=== PATIENT | male | born 1930 | race Caucasian/White ===

== ENCOUNTER 2017-08-20 08:01 | Inpatient (IN) | payer MEDICARE, BC ==
[2017-08-20] MEDS ORDERED: Gabapentin 300 MG Cap PO ONE (08:15)
[2017-08-20] MEDS ORDERED: Scopolamine 1.5 MG Transdermal Patch TRDERM SCH (08:15)
[2017-08-20] MEDS ORDERED: Neostigmine Methylsulfate 1 MG/ML 5 ML Syringe ONE (08:21)
[2017-08-20] MEDS ORDERED: Dexamethasone 4 MG/ML SDV ONE (08:21)
[2017-08-20] MEDS ORDERED: Rocuronium 50 MG/5 ML Vial ONE (08:21)
[2017-08-20] MEDS ORDERED: Glycopyrrolate 0.2 MG/ML 5 ML MDV ONE (08:21)
[2017-08-20] MEDS ORDERED: Succinylcholine 200 MG/10 ML MDV ONE (08:21)
[2017-08-20] MEDS ORDERED: Ondansetron 4 MG/2 ML SDV ONE (08:21)
[2017-08-20] MEDS ORDERED: Propofol 200 MG/20 ML SDV ONE ×3 (08:21→11:54)
[2017-08-20] MEDS ORDERED: fentaNYL 100 MCG/2 ML SDV ONE (08:29)
[2017-08-20] MEDS ORDERED: Midazolam 1 MG/ML 2 ML SDV ONE (08:29)
[2017-08-20] MEDS ORDERED: Povidone-Iodine 10% Soln 118.25 ML Bottle ONE (08:50)
[2017-08-20] MEDS ORDERED: ceFAZolin 2 GM in Premix Bag 1 BAG IV ONE (09:30)
[2017-08-20] MEDS: Lactated Ringers 1,000 ML IV SCH ×2 (09:33→16:58)
[2017-08-20] MEDS ORDERED: Ropivacaine 49.25 ML, Ketorolac 30 MG, EPINEPHrine 0.5 MG, cloNIDine 80 MCG, Sodium Chl... INJECT ONE ×5 (09:45)
[2017-08-20] MEDS ORDERED: Tranexamic Acid 1,000 MG in Sodium Chloride 0.9% 100 ML IV SCH (09:45)
[2017-08-20] MEDS ORDERED: Tranexamic Acid 1,000 MG in Sodium Chloride 0.9% 50 ML IV SCH (09:45)
[2017-08-20] MEDS ORDERED: Gentamicin 40 MG/ML 2 ML Vial ONE (11:08)
[2017-08-20] MEDS ORDERED: Acetaminophen 1,000 MG in Premix Bag 1 BAG IV ONE (12:28)
[2017-08-20] MEDS ORDERED: Aluminum Hydroxide/Magnesium Hydroxide/Simethicone Susp 30 ML Cup PO PRN (12:28)
[2017-08-20] MEDS ORDERED: diphenhydrAMINE 50 MG/ML SDV IVPUSH PRN (12:28)
[2017-08-20] MEDS ORDERED: traMADol 50 MG Tab PO PRN (12:28)
[2017-08-20] MEDS ORDERED: Ketorolac 30 MG/ML SDV IVPUSH PRN (12:28)
[2017-08-20] MEDS ORDERED: Morphine 2 MG/ML Syringe IVPUSH PRN (12:28)
[2017-08-20] MEDS ORDERED: oxyCODONE 5 MG Tab PO PRN (12:28)
[2017-08-20] MEDS ORDERED: Ondansetron 4 MG/2 ML SDV IVPUSH PRN (12:28)
[2017-08-20] MEDS ORDERED: Naloxone 0.4 MG/ML SDV IVPUSH PRN (12:28)
[2017-08-20] MEDS ORDERED: Zolpidem 5 MG Tab PO PRN (12:28)
[2017-08-20] MEDS ORDERED: Tranexamic Acid 1,000 MG in Sodium Chloride 0.9% 50 ML IV ONE (12:30)
[2017-08-20] MEDS ORDERED: ceFAZolin 2 GM in Sodium Chloride 0.9% 50 ML IV SCH (12:30)
[2017-08-20] MEDS ORDERED: Diazepam 5 MG Tab PO PRN (13:24)
--- NOTE | 2017-08-20 13:55 | CR ---
Knee 1V or 2V Lt HISTORY: Prior knee replacement. COMPARISON: 08/01/2017. FINDINGS: Medial hemiarthroplasty change. There is no fracture there is good alignment. Small amount of fluid and gas in the suprapatellar bursa.
--- NOTE | 2017-08-20 14:54 | PCM.PN ---
- General Info Date of Service: 08/20/17 Functional Status: Reports: Pain Controlled, Tolerating Diet - Review of Systems Systems Review Comment:: No acute events since surgery. Vital signs have been stable. He has no knee pain at this time. He is able to wiggle his toes without difficulty. No paresthesias reported. No complaints of chest pain or shortness of breath. - Patient Data Vitals - Most Recent: Last Vital Signs Temp 35.7 C 08/20/17 14:30 Pulse 70 08/20/17 14:30 Resp 18 08/20/17 14:30 BP 123/74 08/20/17 14:30 Pulse Ox 96 08/20/17 14:30 Weight - Most Recent: 118.407 kg I&O - Last 24 Hours: Intake & Output 08/19/17 08/20/17 08/20/17 22:59 06:59 14:59 Intake Total 440 Output Total 610 Balance -170 Lab Results Last 24 Hours: Laboratory Results - last 24 hr 08/20/17 08/20/17 Range/Units 08:13 08:13 PT 11.8 (9.5-12.0) sec INR 1.10 (0.80-1.20) APTT 27.5 (27.0-36.0) sec Blood Type O POSITIVE Gel Antibody Screen Negative Med Orders - Current: Current Medications Al Hydroxide/Mg Hydroxide (Mag-Al Plus) 30 ml PO Q4H PRN PRN Reason: Constipation Amlodipine Besylate (Norvasc) 5 mg PO BEDTIME [facility] Aspirin (Ecotrin) 325 mg PO DAILY [facility] Atorvastatin Calcium (Lipitor) 40 mg PO BEDTIME [facility] Bisacodyl (Dulcolax) 10 mg PO DAILY [facility] Diazepam (Valium.) 5 mg PO Q6H PRN PRN Reason: Spasms Diphenhydramine HCl (Benadryl) 25 mg IVPUSH Q4H PRN PRN Reason: Itching Docusate Sodium (Colace) 100 mg PO BID [facility] Doxazosin Mesylate (Cardura) 8 mg PO BEDTIME [facility] Finasteride (Proscar) 5 mg PO DAILY [facility] Furosemide (Lasix) 40 mg PO DAILY [facility] Lactated Ringer's (Ringers, Lactated) 1,000 mls @ 0 mls/hr IV ASDIRECTED [facility] PRN Reason: KVO Last Admin: 08/20/17 09:33 Dose: 100 mls/hr Cefazolin Sodium 2 gm/ Sodium (Chloride) 50 mls @ 100 mls/hr IV Q8H [facility] Stop: 08/21/17 10:29 Ketorolac Tromethamine (Toradol) 15 mg IVPUSH Q8H PRN PRN Reason: Pain Stop: 08/25/17 12:28 Levothyroxine Sodium (Levothyroxine) 75 mcg PO ACBREAKFAST [facility] Lisinopril (Prinivil) 40 mg PO DAILY [facility] Magnesium Hydroxide (Milk Of Magnesia) 30 ml PO BID [facility] Metoprolol Succinate (Toprol Xl) 25 mg PO BEDTIME [facility] Morphine Sulfate (Morphine) 2 mg IVPUSH Q2H PRN PRN Reason: Pain Naloxone HCl (Narcan) 0.1 mg IVPUSH ONETIME PRN PRN Reason: Oversedation Stop: 08/20/17 23:00 Verify Scop Patch 0 each TOP DAILY [facility] Ondansetron HCl (Zofran) 8 mg IVPUSH Q4H PRN PRN Reason: Nausea/Vomiting Oxycodone HCl (Oxycodone) 10 mg PO Q4H PRN PRN Reason: Pain Stop: 08/21/17 12:28 Oxycodone/Acetaminophen (Percocet 325-5 Mg) 2 tab PO Q4H PRN PRN Reason: Pain Potassium Chloride (Klor-Con M20) 20 meq PO DAILY [facility] Scopolamine (Transderm-Scop) 1.5 mg TRDERM Q72H [facility] Stop: 08/23/17 06:15 Last Admin: 08/20/17 08:26 Dose: 1.5 mg Senna (Senna) 8.6 mg PO BID [facility] Sodium Chloride (Saline Flush) 10 ml FLUSH DAILY [facility] Tramadol HCl (Ultram) 100 mg PO Q6H PRN PRN Reason: Pain Triamterene/HCTZ (Dyazide 25-37.5 Mg) 1 each PO BEDTIME [facility] Zolpidem Tartrate (Ambien) 5 mg PO BEDTIME PRN PRN Reason: Sleep Discontinued Medications Amlodipine Besylate (Norvasc) 5 mg PO BEDTIME [facility] Aspirin (Ecotrin) 325 mg PO DAILY [facility] Atorvastatin Calcium (Lipitor) 40 mg PO BEDTIME [facility] Bisacodyl (Dulcolax) 10 mg PO DAILY [facility] Ropivacaine 49.25 ml/Ketorolac Tromethamine 30 mg/Epinephrine HCl 0.5 mg/ Clonidine HCl 80 mcg/ Sodium Chloride 48.45 ml 0 ml INJECT ONETIME ONE Stop: 08/20/17 09:46 Last Admin: 08/20/17 11:52 Dose: 100 ml Dexamethasone (Dexamethasone) Confirm Administered Dose 4 mg .ROUTE .STK-MED ONE Stop: 08/20/17 08:22 Docusate Sodium (Colace) 100 mg PO BID [facility] Fentanyl (Sublimaze) Confirm Administered Dose 100 mcg .ROUTE .STK-MED ONE Stop: 08/20/17 08:30 Fentanyl Citrate (Fentanyl) Confirm Administered Dose 500 mcg .ROUTE .STK-MED ONE Stop: 08/20/17 08:22 Finasteride (Proscar) 5 mg PO DAILY [facility] Gabapentin (Neurontin) 300 mg PO ONETIME ONE Stop: 08/20/17 08:16 Last Admin: 08/20/17 08:25 Dose: 300 mg Gentamicin Sulfate (Gentamicin) Confirm Administered Dose 240 mg .ROUTE .STK- MED ONE Stop: 08/20/17 11:09 Last Admin: 08/20/17 11:26 Dose: 240 mg Glycopyrrolate (Robinul) Confirm Administered Dose 1 mg .ROUTE .STK-MED ONE Stop: 08/20/17 08:22 Cefazolin Sodium/Dextrose 2 gm (/ Premix) 50 mls @ 100 mls/hr IV ONETIME ONE Stop: 08/20/17 09:59 Last Admin: 08/20/17 10:43 Dose: 100 mls/hr Tranexamic Acid 1,000 mg/ (Sodium Chloride) 110 mls @ 440 mls/hr IV Q2H [facility] Stop: 08/20/17 11:00 Last Admin: 08/20/17 11:15 Dose: 440 mls/hr Tranexamic Acid 1,000 mg/ (Sodium Chloride) 60 mls @ 240 mls/hr IV ONETIME ONE Stop: 08/20/17 12:44 Last Admin: 08/20/17 12:36 Dose: 240 mls/hr Acetaminophen 1,000 mg/ Premix 100 mls @ 400 mls/hr IV NOW ONE Stop: 08/20/17 12:42 Last Admin: 08/20/17 13:50 Dose: 400 mls/hr Cefazolin Sodium 2 gm/ Sodium (Chloride) 50 mls @ 100 mls/hr IV Q8H [facility] Stop: 08/21/17 04:59 Magnesium Hydroxide (Milk Of Magnesia) 30 ml PO BID [facility] Midazolam HCl (Versed 1 Mg/Ml) Confirm Administered Dose 2 mg .ROUTE .STK-MED ONE Stop: 08/20/17 08:30 Neostigmine Methylsulfate (Neostigmine) Confirm Administered Dose 5 mg .ROUTE .STK-MED ONE Stop: 08/20/17 08:22 Non-Formulary Medication (Doxazosin [Cardura]) 8 mg PO BEDTIME [facility] Ondansetron HCl (Zofran) Confirm Administered Dose 4 mg .ROUTE .STK-MED ONE Stop: 08/20/17 08:22 Povidone Iodine (Betadine 10% Soln) Confirm Administered Dose 1 ml .ROUTE .STK- MED ONE Stop: 08/20/17 08:51 Last Admin: 08/20/17 11:27 Dose: 30 ml Propofol (Diprivan 20 Ml) Confirm Administered Dose 200 mg .ROUTE .STK-MED ONE Stop: 08/20/17 08:22 Propofol (Diprivan 20 Ml) Confirm Administered Dose 200 mg .ROUTE .STK-MED ONE Stop: 08/20/17 08:30 Propofol (Diprivan 20 Ml) Confirm Administered Dose 200 mg .ROUTE .STK-MED ONE Stop: 08/20/17 11:55 Rocuronium [place] (Zemuron) Confirm Administered Dose 50 mg .ROUTE .STK-MED ONE Stop: 08/20/17 08:22 Senna (Senna) 8.6 mg PO BID [facility] Succinylcholine Chloride (Quelicin) Confirm Administered Dose 200 mg .ROUTE .STK -MED ONE Stop: 08/20/17 08:22 - Exam Quality Assessment: Supplemental Oxygen General: Alert, Oriented, Cooperative, No Acute Distress Lungs: Clear to Auscultation, Normal Respiratory Effort Cardiovascular: Regular Rate, Regular Rhythm, Murmurs GI/Abdominal Exam: Normal Bowel Sounds, Soft, Non-Tender, No Distention Extremities: Pedal Edema (mild left ankle edema), Other (left knee wrapped in BRIJESH). 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 No pain at this time. -Postop cares per orthopedic team Coronary artery disease - stable with no active symptoms at this time. -Continue home medications Essential hypertension - blood pressure controlled so far. -Continue home medications BPH with lower urinary tract symptoms - at risk for urinary retention postoperatively and will need close monitoring. -Continue home medications Kelvin Nunez M.D.
[2017-08-20] MEDS: VERIFY SCOP PATCH TOP SCH (17:03)
--- NOTE | 2017-08-20 17:47 | OR ---
DATE OF PROCEDURE: 08/20/2017 PREOPERATIVE DIAGNOSIS: Left knee primary osteoarthritis. POSTOPERATIVE DIAGNOSIS: Left knee primary osteoarthritis. PROCEDURE: Left knee medial unicompartmental arthroplasty. MOLDER SETTER: Becky Robertson NP. Physician business services assistant, Becky Robertson NP, played an essential role in assisting in this case, helping to position the patient, retract structures as needed, as well as suturing and cutting sutures as indicated. Her presence improved patient's safety and decreased operative time. ANESTHESIA: Spinal plus conscious sedation. FLUID: Lactated Ringer solution. ESTIMATED BLOOD LOSS: 10 mL. COMPLICATIONS: None. SPECIMEN: None. DISCHARGE DISPOSITION: Stable to PACU. INDICATIONS: The patient was seen preoperatively in the clinic. He failed nonoperative treatment. Preoperative imaging confirmed the above-mentioned diagnosis. Risks and benefits of the procedure were explained to the patient. Informed consent was obtained. DETAILS OF PROCEDURE: The patient was seen preoperatively by myself and the Anesthesia staff in the preoperative holding area, where the operative site was marked. He was brought to the operative suite by the Anesthesia staff where spinal anesthesia plus conscious sedation was administered. His right lower extremity was placed into a stirrup. The left lower extremity had a well-padded tourniquet placed and then was placed into a thigh hawkins. The left lower extremity was then prepped and draped in a sterile manner. Time-out was called identifying the correct patient, correct procedure, the correct site, and antibiotics had begun within appropriate period of time. The left lower extremity was then exsanguinated and tourniquet was raised to 300 mmHg for 45 minutes and let down after cementing. An incision from the tibial tubercle to the medial aspect proximal to the patella approximately three fingerbreadths were made. Bleeding was controlled during the case with Bovie electrocautery. We then went down the deep fascia. Medial parapatellar arthrotomy was made. The infrapatellar fat pad was removed. Partial medial synovectomy was performed. Osteophytes were removed from the notch. Large pin was inserted and found to be in good position and good fit. I then inserted an extramedullary tibial guide and then pinned this into position. I then made my vertical cut in line with the anterior superior iliac spine and then a horizontal cut and then removed the proximal tibial bone. This measured D. I then removed the extramedullary guide as well as the pins. I then inserted a tibial base plate and then was able to insert a #6 spacer. I then drilled in line with the medial notch 1 cm anterior and then placed an intramedullary daxa in this. I then connected this to my femoral guide after marking the medial third of the condyle. I then drilled my two holes for the guide and then removed the guide and the daxa. I then put on a 0 spigot and then reamed, then placed the femur and tibial base plate. This was 4 in flexion and I was unable to get one metal plate in. I then therefore drilled with a 4 spigot and this was too tight and then a 5 spigot. After the 5 spigot was done, I was able to insert a 4 both in flexion and extension. After this had been performed, I removed both components and then put on my femoral reaming and posterior condylar guide. I reamed anteriorly and then removed any posterior osteophytes. I used osteotomes as well as rongeurs to remove any extra bone. I then inserted my tibial base plate from the fin guide and kept to the anterior using my handle with a hook. I then pinned this in place with a spike and then used a saw to the guide to make a notch from my fin. I then cleaned this out and then placed my fin base plate and tamped this into position. I placed my femoral component and then was able to insert a #4 spacer which provided excellent range of motion and stability. We then removed all of those components and then copiously irrigated with saline. We then cemented our components in place and let them dry with a 5 spacer. After this was done, we then let the tourniquet down after 45 minutes. Minimal bleeding was encountered which was controlled with Bovie electrocautery. I inserted a 4 trial spacer which provided excellent stability and range of motion. So, then we copiously irrigated again with saline and then inserted a 4 spacer. Then copiously irrigated with saline, closed with two #5 Ethibonds followed by #2 Stratafix, 3-0 Stratafix skin zoraida and sterile dressing. The patient was then transferred to his hospital bed and allowed to go to the PACU in stable condition. Alen Grider DO /[id number]
[2017-08-20] MEDS: ceFAZolin 2 GM in Sodium Chloride 0.9% 50 ML IV SCH (17:50)
[2017-08-20] MEDS: Docusate Sodium 100 MG Cap PO SCH (20:48)
[2017-08-20] MEDS: Sennosides 8.6 MG Tab PO SCH (20:48)
[2017-08-20] MEDS: Magnesium Hydroxide 400 MG/5 ML Susp 30 ML Cup PO SCH (20:49)
[2017-08-20] MEDS ORDERED: Hydrochlorothiazide/Triamterene 25-37.5 MG Cap PO SCH (21:00)
[2017-08-20] MEDS ORDERED: Sennosides 8.6 MG Tab PO SCH (21:00)
[2017-08-20] MEDS ORDERED: DOXAZOSIN 8 MG PO SCH ×2 (21:00)
[2017-08-20] MEDS ORDERED: amLODIPine 10 MG Tab PO SCH ×2 (21:00)
[2017-08-20] MEDS ORDERED: amLODIPine 5 MG Tab PO SCH (21:00)
[2017-08-20] MEDS ORDERED: Magnesium Hydroxide 400 MG/5 ML Susp 30 ML Cup PO SCH (21:00)
[2017-08-20] MEDS ORDERED: Docusate Sodium 100 MG Cap PO SCH (21:00)
[2017-08-20] MEDS ORDERED: Metoprolol Succinate 25 MG Tab.ER PO SCH (21:00)
[2017-08-20] MEDS ORDERED: Doxazosin 4 MG Tab PO SCH (21:00)
[2017-08-20] MEDS ORDERED: atorvaSTATin 20 MG Tab PO SCH ×2 (21:00)
[2017-08-21] MEDS: ceFAZolin 2 GM in Sodium Chloride 0.9% 50 ML IV SCH ×2 (02:23→11:36)
[2017-08-21] MEDS ORDERED: Levothyroxine 75 MCG Tab PO SCH (07:30)
[2017-08-21] MEDS ORDERED: Potassium Chloride 20 MEQ Tab.ER PO SCH (09:00)
[2017-08-21] MEDS ORDERED: Bisacodyl 5 MG Tab PO SCH ×2 (09:00)
[2017-08-21] MEDS ORDERED: Non-Formulary Medication 1 Each (Potassium Chloride [Potassium Chloride] 20 MEQ) PO SCH (09:00)
[2017-08-21] MEDS ORDERED: Aspirin 325 MG Tab.EC PO SCH ×2 (09:00→12:28)
[2017-08-21] MEDS ORDERED: Finasteride 5 MG Tab PO SCH ×2 (09:00)
[2017-08-21] MEDS ORDERED: Non-Formulary Medication 1 Each (Lisinopril [Lisinopril] 40 MG) PO SCH (09:00)
[2017-08-21] MEDS ORDERED: Sodium Chloride 0.9% 10 ML Syringe FLUSH SCH (09:00)
[2017-08-21] MEDS ORDERED: Lisinopril 20 MG Tab PO SCH (09:00)
[2017-08-21] MEDS ORDERED: Furosemide 40 MG Tab PO SCH (09:00)
[2017-08-21] MEDS ORDERED: Levothyroxine 50 MCG Tab PO SCH (09:00)
[2017-08-21] MEDS: VERIFY SCOP PATCH TOP SCH (09:02)
[2017-08-21] MEDS: Docusate Sodium 100 MG Cap PO SCH (10:12)
[2017-08-21] MEDS: Sennosides 8.6 MG Tab PO SCH (10:12)
--- NOTE | 2017-08-21 10:29 | PCM.DCSUM1 ---
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 Kept post op for pain control, pt/ot. Did well. Banuelos removed pod 1. dc to home in good condition pod 1. - Discharge Data Discharge Date: 08/21/17 Discharge Disposition: Home, Self-Care 01 Condition: Good - Patient Summary/Data Operative Procedure(s) Performed: Left Knee UKA Complications: none Consults: Consultations 08/20/17 12:28 OT Evaluation and Treatment [CONS] Routine Please Evaluate and Treat. OT Reason for Consult: Strengthening This query below is only for informational purposes and is not editable. PT Evaluation and Treatment [CONS] Routine Please Evaluate and Treat. PT Reason for Consult: Strengthening This query below is only for informational purposes and is not editable. 08/20/17 12:34 Consult to Physician [CONS] Routine Consulting Provider: Kelvin Nunez Call Completed to Consulting Physician: Yes - Patient Instructions Diet: Usual Diet as Tolerated Driving: Do Not Drive Showering/Bathing: May Shower Wound/Incision Care: Keep Operative Site/Wound Site Clean and Dry, Change Dressing Daily Notify Provider of: Fever, Increased Pain, Swelling and Redness, Drainage, Nausea and/or Vomiting - Discharge Plan Home Medications: Home Meds Aspirin 81 mg PO DAILY 11/02/13 [History] Doxazosin [Cardura] 8 mg PO BEDTIME 11/02/13 [History] Levothyroxine [Synthroid] 75 mcg PO DAILY 11/02/13 [History] Lisinopril 40 mg PO DAILY 11/02/13 [History] Nitroglycerin [Nitrostat] 0.4 mg SL ASDIRECTED 11/02/13 [History] Vit B12/Fa/Pyridoxine HCl/AA15 [Glycotrol] 1,000 mg PO DAILY 11/02/13 [History] Vit D3/Folic Acid/B2/B6/B12 [Folgard Tablet] 1 each PO BEDTIME 11/02/13 [History ] amLODIPine [Norvasc] 5 mg PO BEDTIME 11/02/13 [History] atorvaSTATin [Lipitor] 40 mg PO BEDTIME 11/02/13 [History] Warfarin Sliding Scale [Coumadin Sliding Scale] 1 tab PO ASDIRECTED 06/15/14 [ History] Finasteride [Proscar] 5 mg PO DAILY 08/19/17 [History] Furosemide [Lasix] 40 mg PO DAILY 08/19/17 [History] Metoprolol Succinate [Toprol XL] 25 mg PO BEDTIME 08/19/17 [History] Potassium Chloride 20 meq PO DAILY 08/20/17 [History] Triamterene/Hydrochlorothiazid [Triamterene-HCTZ 37.5-25 MG] 1 cap PO BEDTIME [History] Patient Handouts: Preventing Constipation After Surgery Referrals: Becky Robertson NP [Nurse Practitioner] - 09/09/17 10:00 am - General Info Functional Status: Reports: Pain Controlled - Review of Systems General: Reports: No Symptoms HEENT: Reports: No Symptoms Pulmonary: Reports: No Symptoms Cardiovascular: Reports: No Symptoms Gastrointestinal: Reports: No Symptoms Genitourinary: Reports: No Symptoms Musculoskeletal: Reports: Joint Pain Skin: Reports: No Symptoms Neurological: Reports: No Symptoms Psychiatric: Reports: No Symptoms - Patient Data Vitals - Most Recent: Last Vital Signs Temp 96.2 F 08/21/17 07:21 Pulse 98 08/21/17 07:21 Resp 16 08/21/17 07:21 BP 136/72 08/21/17 09:01 Pulse Ox 95 08/21/17 07:57 Weight - Most Recent: 261 lb 0.7 oz I&O - Last 24 hours: Intake & Output 08/20/17 08/21/17 08/21/17 22:59 06:59 14:59 Intake Total 465 952 480 Output Total 335 405 Balance 130 547 480 Lab Results - Last 24 hrs: Laboratory Results - last 24 hr 08/21/17 08/21/17 Range/Units 04:44 04:44 WBC 6.4 (4.5-11.0) K/uL RBC 4.57 (4.30-5.90) M/uL Hgb 13.7 (12.0-15.0) g/dL Hct 40.2 (40.0-54.0) % MCV 88 (80-98) fL MCH 30 (27-31) pg MCHC 34 (32-36) % Plt Count 101 L (150-400) K/uL Neut % (Auto) 73 H (36-66) % Lymph % (Auto) 17 L (24-44) % [place] % (Auto) 6 (2-6) % Eos % (Auto) 4 (2-4) % Baso % (Auto) 0 (0-1) % Sodium 146 (140-148) mmol/L Potassium 4.2 (3.6-5.2) mmol/L Chloride 110 H (100-108) mmol/L Carbon Dioxide 31 (21-32) mmol/L Anion Gap 9.2 (5.0-14.0) mmol/L BUN 23 H (7-18) mg/dL Creatinine 1.7 H (0.8-1.3) mg/dL Est Cr Clr Drug Dosing 33.48 mL/min Estimated GFR (MDRD) 39 L (>60) Glucose 155 H (74-106) mg/dL Calcium 8.8 (8.5-10.1) mg/dL Total Bilirubin 0.8 (0.2-1.0) mg/dL AST 35 D (15-37) U/L ALT 44 D (12-78) U/L Alkaline Phosphatase 58 (46-116) U/L Total Protein 5.3 L (6.4-8.2) g/dL Albumin 2.9 L (3.4-5.0) g/dL Globulin 2.4 (2.3-3.5) g/dL Albumin/Globulin Ratio 1.2 (1.2-2.2) Med Orders - Current: Current Medications Al Hydroxide/Mg Hydroxide (Mag-Al Plus) 30 ml PO Q4H PRN PRN Reason: Constipation Amlodipine Besylate (Norvasc) 5 mg PO BEDTIME [facility] Last Admin: 08/20/17 20:33 Dose: 5 mg Aspirin (Ecotrin) 325 mg PO DAILY [facility] Last Admin: 08/21/17 09:01 Dose: 325 mg Atorvastatin Calcium (Lipitor) 40 mg PO BEDTIME [facility] Last Admin: 08/20/17 20:48 Dose: 40 mg Bisacodyl (Dulcolax) 10 mg PO DAILY [facility] Diazepam (Valium.) 5 mg PO Q6H PRN PRN Reason: Spasms Diphenhydramine HCl (Benadryl) 25 mg IVPUSH Q4H PRN PRN Reason: Itching Docusate Sodium (Colace) 100 mg PO BID [facility] Last Admin: 08/21/17 10:12 Dose: 100 mg Doxazosin Mesylate (Cardura) 8 mg PO BEDTIME [facility] Last Admin: 08/20/17 20:30 Dose: 8 mg Finasteride (Proscar) 5 mg PO DAILY [facility] Last Admin: 08/21/17 10:12 Dose: 5 mg Furosemide (Lasix) 40 mg PO DAILY [facility] Last Admin: 08/21/17 09:02 Dose: 40 mg Lactated Ringer's (Ringers, Lactated) 1,000 mls @ 0 mls/hr IV ASDIRECTED [facility] PRN Reason: KVO Last Admin: 08/20/17 16:58 Dose: 100 mls/hr Cefazolin Sodium 2 gm/ Sodium (Chloride) 50 mls @ 100 mls/hr IV Q8H [facility] Stop: 08/21/17 10:29 Last Admin: 08/21/17 02:23 Dose: 100 mls/hr Ketorolac Tromethamine (Toradol) 15 mg IVPUSH Q8H PRN PRN Reason: Pain Stop: 08/25/17 12:28 Last Admin: 08/20/17 19:33 Dose: 15 mg Levothyroxine Sodium (Levothyroxine) 75 mcg PO ACBREAKFAST [facility] Last Admin: 08/21/17 07:39 Dose: 75 mcg Lisinopril (Prinivil) 40 mg PO DAILY [facility] Last Admin: 08/21/17 09:01 Dose: 40 mg Magnesium Hydroxide (Milk Of Magnesia) 30 ml PO BID [facility] Last Admin: 08/20/17 20:49 Dose: 30 ml Metoprolol Succinate (Toprol Xl) 25 mg PO BEDTIME [facility] Last Admin: 08/20/17 20:33 Dose: 25 mg Morphine Sulfate (Morphine) 2 mg IVPUSH Q2H PRN PRN Reason: Pain Verify Scop Patch 0 each TOP DAILY [facility] Last Admin: 08/21/17 09:02 Dose: 1 each Ondansetron HCl (Zofran) 8 mg IVPUSH Q4H PRN PRN Reason: Nausea/Vomiting Oxycodone HCl (Oxycodone) 10 mg PO Q4H PRN PRN Reason: Pain Stop: 08/21/17 12:28 Last Admin: 08/20/17 20:25 Dose: 10 mg Oxycodone/Acetaminophen (Percocet 325-5 Mg) 2 tab PO Q4H PRN PRN Reason: Pain Potassium Chloride (Klor-Con M20) 20 meq PO DAILY [facility] Last Admin: 08/21/17 09:01 Dose: 20 meq Scopolamine (Transderm-Scop) 1.5 mg TRDERM Q72H [facility] Stop: 08/23/17 06:15 Last Admin: 08/20/17 08:26 Dose: 1.5 mg Senna (Senna) 8.6 mg PO BID [facility] Last Admin: 08/21/17 10:12 Dose: 8.6 mg Sodium Chloride (Saline Flush) 10 ml FLUSH DAILY [facility] Last Admin: 08/21/17 10:11 Dose: Not Given Tramadol HCl (Ultram) 100 mg PO Q6H PRN PRN Reason: Pain Last Admin: 08/21/17 07:46 Dose: 100 mg Triamterene/HCTZ (Dyazide 25-37.5 Mg) 1 each PO BEDTIME [facility] Last Admin: 08/20/17 20:33 Dose: 1 each Zolpidem Tartrate (Ambien) 5 mg PO BEDTIME PRN PRN Reason: Sleep Discontinued Medications Amlodipine Besylate (Norvasc) 5 mg PO BEDTIME [facility] Aspirin (Ecotrin) 325 mg PO DAILY [facility] Atorvastatin Calcium (Lipitor) 40 mg PO BEDTIME [facility] Bisacodyl (Dulcolax) 10 mg PO DAILY [facility] Ropivacaine 49.25 ml/Ketorolac Tromethamine 30 mg/Epinephrine HCl 0.5 mg/ Clonidine HCl 80 mcg/ Sodium Chloride 48.45 ml 0 ml INJECT ONETIME ONE Stop: 08/20/17 09:46 Last Admin: 08/20/17 11:52 Dose: 100 ml Dexamethasone (Dexamethasone) Confirm Administered Dose 4 mg .ROUTE .STK-MED ONE Stop: 08/20/17 08:22 Docusate Sodium (Colace) 100 mg PO BID [facility] Fentanyl (Sublimaze) Confirm Administered Dose 100 mcg .ROUTE .STK-MED ONE Stop: 08/20/17 08:30 Fentanyl Citrate (Fentanyl) Confirm Administered Dose 500 mcg .ROUTE .STK-MED ONE Stop: 08/20/17 08:22 Finasteride (Proscar) 5 mg PO DAILY [facility] Gabapentin (Neurontin) 300 mg PO ONETIME ONE Stop: 08/20/17 08:16 Last Admin: 08/20/17 08:25 Dose: 300 mg Gentamicin Sulfate (Gentamicin) Confirm Administered Dose 240 mg .ROUTE .STK- MED ONE Stop: 08/20/17 11:09 Last Admin: 08/20/17 11:26 Dose: 240 mg Glycopyrrolate (Robinul) Confirm Administered Dose 1 mg .ROUTE .STK-MED ONE Stop: 08/20/17 08:22 Cefazolin Sodium/Dextrose 2 gm (/ Premix) 50 mls @ 100 mls/hr IV ONETIME ONE Stop: 08/20/17 09:59 Last Admin: 08/20/17 10:43 Dose: 100 mls/hr Tranexamic Acid 1,000 mg/ (Sodium Chloride) 110 mls @ 440 mls/hr IV Q2H [facility] Stop: 08/20/17 11:00 Last Admin: 08/20/17 11:15 Dose: 440 mls/hr Tranexamic Acid 1,000 mg/ (Sodium Chloride) 60 mls @ 240 mls/hr IV ONETIME ONE Stop: 08/20/17 12:44 Last Admin: 08/20/17 12:36 Dose: 240 mls/hr Acetaminophen 1,000 mg/ Premix 100 mls @ 400 mls/hr IV NOW ONE Stop: 08/20/17 12:42 Last Admin: 08/20/17 13:50 Dose: 400 mls/hr Cefazolin Sodium 2 gm/ Sodium (Chloride) 50 mls @ 100 mls/hr IV Q8H [facility] Stop: 08/21/17 04:59 Last Admin: 08/20/17 21:49 Dose: Not Given Magnesium Hydroxide (Milk Of Magnesia) 30 ml PO BID [facility] Midazolam HCl (Versed 1 Mg/Ml) Confirm Administered Dose 2 mg .ROUTE .STK-MED ONE Stop: 08/20/17 08:30 Naloxone HCl (Narcan) 0.1 mg IVPUSH ONETIME PRN PRN Reason: Oversedation Stop: 08/20/17 23:00 Neostigmine Methylsulfate (Neostigmine) Confirm Administered Dose 5 mg .ROUTE .STK-MED ONE Stop: 08/20/17 08:22 Non-Formulary Medication (Doxazosin [Cardura]) 8 mg PO BEDTIME [facility] Ondansetron HCl (Zofran) Confirm Administered Dose 4 mg .ROUTE .STK-MED ONE Stop: 08/20/17 08:22 Povidone Iodine (Betadine 10% Soln) Confirm Administered Dose 1 ml .ROUTE .STK- MED ONE Stop: 08/20/17 08:51 Last Admin: 08/20/17 11:27 Dose: 30 ml Propofol (Diprivan 20 Ml) Confirm Administered Dose 200 mg .ROUTE .STK-MED ONE Stop: 08/20/17 08:22 Propofol (Diprivan 20 Ml) Confirm Administered Dose 200 mg .ROUTE .STK-MED ONE Stop: 08/20/17 08:30 Propofol (Diprivan 20 Ml) Confirm Administered Dose 200 mg .ROUTE .STK-MED ONE Stop: 08/20/17 11:55 Rocuronium [place] (Zemuron) Confirm Administered Dose 50 mg .ROUTE .STK-MED ONE Stop: 08/20/17 08:22 Senna (Senna) 8.6 mg PO BID [facility] Succinylcholine Chloride (Quelicin) Confirm Administered Dose 200 mg .ROUTE .STK -MED ONE Stop: 08/20/17 08:22 - Exam General: Reports: Alert, Oriented HEENT: Reports: Pupils Equal, Pupils Reactive, EOMI, Mucous Membr. Moist/[place] Neck: Reports: Supple Lungs: Reports: Normal Respiratory Effort Extremities: Normal Inspection, Joint Swelling Skin: Reports: Warm, Dry, Intact Wound/Incisions: Reports: Healing Well, Drainage Neurological: Reports: No New Focal Deficit Discharge Operative/Procedures - Procedures Performed Operations: Left knee UKA *Q Meaningful Use (DIS) - VTE *Q VTE Criteria *Q: - Stroke *Q Stroke Criteria *Q: - AMI *Q AMI Criteria *Q:
[2017-08-21] MEDS: Magnesium Hydroxide 400 MG/5 ML Susp 30 ML Cup PO SCH (11:35)
[2017-08-21] MEDS ORDERED: Acetaminophen/oxyCODONE 325-5 MG Tab PO PRN (12:28)
[2017-08-21 13:09] VITALS: BP 131/63
[2017-08-21] MEDS ORDERED: Tamsulosin 0.4 MG Cap.ER PO SCH (17:30)
== END 2017-08-21 15:18 | disposition home or self-care (01) | DRG 470 ==
LOC: JP.SDSSCHI 08:01 → JP.SDS 08:01 → EDSTATUS 09:00 → JP.MS 12:28
PROVIDERS: ADMIT Orthopaedic Surgery; ATTEND Orthopaedic Surgery
PROC: 0SRD0L9 Replacement of Left Knee Joint with Medial Unicondylar Synthetic Substitute, Cemented, Open Approach (ICD-10-PCS; principal; 2017-08-20)
DX: M17.12 Unilateral primary osteoarthritis, left knee (principal); I25.10 Atherosclerotic heart disease of native coronary artery without angina pectoris; Z85.828 Personal history of other malignant neoplasm of skin; N40.1 Benign prostatic hyperplasia with lower urinary tract symptoms; Z95.5 Presence of coronary angioplasty implant and graft; E11.3299 Type 2 diabetes mellitus with mild nonproliferative diabetic retinopathy without macular edema, unspecified eye; E11.22 Type 2 diabetes mellitus with diabetic chronic kidney disease; I12.9 Hypertensive chronic kidney disease with stage 1 through stage 4 chronic kidney disease, or unspecified chronic kidney disease; N18.3 Chronic kidney disease, stage 3 (moderate); Z79.84 Long term (current) use of oral hypoglycemic drugs; E78.5 Hyperlipidemia, unspecified; E03.9 Hypothyroidism, unspecified; Z95.0 Presence of cardiac pacemaker; Z79.82 Long term (current) use of aspirin; Z79.01 Long term (current) use of anticoagulants; I48.91 Unspecified atrial fibrillation; E66.01 Morbid (severe) obesity due to excess calories; Z68.37 Body mass index [BMI] 37.0-37.9, adult
CPT/HCPCS: 36415; 73560-26-LT; 73560-LT; 80053; 85025; 85610; 85730; 86850; 86900; 86901; 94762; 97116-GP; 97161-GP; 97165-GO; A9270-GY; C1713; C1776; J0131; J0171; J0330; J0690; J0735; J1100; J1580; J1885; J2250; J2405; J2704; J2710; J2795; J3010; J7030; J7050; J7120

== ENCOUNTER 2017-08-22 15:07 | Emergency (ER) | payer MEDICARE, BC ==
[2017-08-22] MEDS ORDERED: Lidocaine 2% Jelly 10 ML Urojet MUCMEM ONE (15:28)
--- NOTE | 2017-08-22 15:31 | EDM.PDOC ---
ED HPI GENERAL MEDICAL PROBLEM - General Chief Complaint: Genitourinary Problem Stated Complaint: CAN'T URINATE Time Seen by Provider: 08/22/17 15:20 Source of Information: Reports: Patient, Family History Limitations: Reports: No Limitations - History of Present Illness INITIAL COMMENTS - FREE TEXT/NARRATIVE: 86-year-old male who was discharged from the hospital yesterday after a knee surgery, had normal urination last evening and overnight but this morning started developing urinary retention. He is now very uncomfortable and unable to pass urine, has developed distention and pressure of the lower abdomen. Onset: Gradual (Symptoms have been worsening all day) Location: Reports: Abdomen, Pelvis Severity: Severe Worsens with: Reports: Other (Urine retention) Associated Symptoms: Denies: Chest Pain, Fever/Chills, Nausea/Vomiting, Shortness of Breath Bladder Pain Score (Numeric/FACES): 10 - Related Data Allergies Allergy/AdvReac Type Severity Reaction Status Date / Time No Known Allergies Allergy Verified 08/22/17 15:48 Home Meds: Home Meds Aspirin 81 mg PO DAILY 11/02/13 [History] Doxazosin [Cardura] 8 mg PO BEDTIME 11/02/13 [History] Levothyroxine [Synthroid] 75 mcg PO DAILY 11/02/13 [History] Lisinopril 40 mg PO DAILY 11/02/13 [History] Nitroglycerin [Nitrostat] 0.4 mg SL ASDIRECTED 11/02/13 [History] Vit B12/Fa/Pyridoxine HCl/AA15 [Glycotrol] 1,000 mg PO DAILY 11/02/13 [History] Vit D3/Folic Acid/B2/B6/B12 [Folgard Tablet] 1 each PO BEDTIME 11/02/13 [History ] amLODIPine [Norvasc] 5 mg PO BEDTIME 11/02/13 [History] atorvaSTATin [Lipitor] 40 mg PO BEDTIME 11/02/13 [History] Warfarin Sliding Scale [Coumadin Sliding Scale] 1 tab PO ASDIRECTED 06/15/14 [ History] Finasteride [Proscar] 5 mg PO DAILY 08/19/17 [History] Furosemide [Lasix] 40 mg PO DAILY 08/19/17 [History] Metoprolol Succinate [Toprol XL] 25 mg PO BEDTIME 08/19/17 [History] Potassium Chloride 20 meq PO DAILY 08/20/17 [History] Triamterene/Hydrochlorothiazid [Triamterene-HCTZ 37.5-25 MG] 1 cap PO BEDTIME [History] Acetaminophen/oxyCODONE [Percocet 325-5 MG] 1 tab PO Q6HR PRN #120 tablet [Rx] Aspirin [Ecotrin] 325 mg PO DAILY #30 tab.ec 08/21/17 [Rx] Tamsulosin [Flomax] 0.4 mg PO BID #16 cap.er 08/21/17 [Rx] Past Medical History HEENT History: Reports: Cataract, Macular Degeneration Cardiovascular History: Reports: High Cholesterol, Hypertension, [place], Pacemaker, SOB on Exertion, Stents, Other (See Below) Other Cardiovascular History: stent right leg- peripheral artery disease Respiratory History: Reports: SOB Gastrointestinal History: Reports: Colon Polyp Musculoskeletal History: Reports: Arthritis, Back Pain, Chronic, Other (See Below) Other Musculoskeletal History: left knee pain Neurological History: Reports: None Psychiatric History: Reports: None Endocrine/Metabolic History: Reports: Obesity/BMI 30+, Vitamin D Deficiency, Other (See Below) Other Endocrine/Metabolic History: borderline Hematologic History: Reports: None Immunologic History: Reports: None Oncologic (Cancer) History: Reports: Other (See Below) Other Oncologic History: skin-melanoma Dermatologic History: Reports: Benign Melanoma, Melanoma - Infectious Disease History Infectious Disease History: Reports: Chicken Pox, Herpes, Measles, Mumps - Past Surgical History Head Surgeries/Procedures: Reports: None HEENT Surgical History: Reports: Cataract Surgery Cardiovascular Surgical History: Reports: Carotid Stents, Pacer, Other (See Below) Other Cardiovascular Surgeries/Procedures: stent right leg Respiratory Surgical History: Reports: None GI Surgical History: Reports: Appendectomy, Colonoscopy, Hernia, Abdominal, Polypectomy Male Surgical History: Reports: None Endocrine Surgical History: Reports: None Neurological Surgical History: Reports: None Musculoskeletal Surgical History: Reports: None Oncologic Surgical History: Reports: None Dermatological Surgical History: Reports: Skin Biopsy, Other (See Below) Social & Family History - Family History Family Medical History: Noncontributory - Tobacco Use Smoking Status *Q: Former Smoker Years of Tobacco use: 35 Packs/Tins Daily: 2 Used Tobacco, but Quit: Yes Month Tobacco Last Used: 09/1991 Second Hand Smoke Exposure: No - Caffeine Use Caffeine Use: Reports: Coffee, Soda - Alcohol Use Days Per Week of Alcohol Use: 1 Number of Drinks Per Day: 5 Total Drinks Per Week: 5 - Recreational Drug Use Recreational Drug Use: No ED ROS GENERAL - Review of Systems Review Of Systems: See Below Constitutional: Denies: Fever Respiratory: Denies: Shortness of Breath GI/Abdominal: Reports: Abdominal Pain : Reports: Urinary Retention Musculoskeletal: Reports: Other (Recent knee surgery) ED EXAM, RENAL/ - Physical Exam Exam: See Below Exam Limited By: No Limitations General Appearance: Alert, Moderate Distress Respiratory/Chest: No Respiratory Distress GI/Abdominal: Tender (Tender and distended over the lower abdomen) (Male) Exam: Other (Bladder scan shows greater than 1000 mL of urine in the bladder) Course - Vital Signs Last Recorded V/S: Last Vital Signs Temp 97.5 F 08/22/17 15:30 Pulse 71 08/22/17 15:30 Resp 18 08/22/17 15:30 BP 175/85 H 08/22/17 15:30 Pulse Ox 94 L 08/22/17 15:30 - Orders/Labs/Meds Orders: Active Orders 24 hr Category Date Time Status Banuelos Catheter Insertion [Insert Urinary Catheter] [OM. Care 08/22/17 15:45 Ordered PC] Q24H Urinary Catheter Assessment [RC] ASDIRECTED Care 08/22/17 15:32 Active Meds: Medications Discontinued Medications Generic Name Dose Route Start Last Admin Trade Name Bisi PRN Reason Stop Dose Admin Lidocaine HCl 10 ml 08/22/17 15:28 08/22/17 15:25 Xylocaine 2% Jelly MUCMEM 08/22/17 15:29 10 ml ONETIME ONE Administration - Re-Assessments/Exams Free Text/Narrative Re-Assessment/Exam: 08/22/17 15:30 Using a Urojet for anesthesia, a Banuelos catheter was placed. 08/22/17 16:09 After the Banuelos was placed, 1100 mL of urine was released. Symptoms resolved. He will leave the Banuelos in for another 36 hours, until Saturday morning and then it will be removed. He will return sooner if he develops any problems. Departure - Departure Time of Disposition: 16:20 Disposition: Home, Self-Care 01 Condition: Good Clinical Impression: Acute urinary retention - Discharge Information Instructions: Acute Urinary Retention, Male, [id number] Referrals: Job Otto SENIOR DEVOPS ENGINEER [Primary Care Provider] - Forms: ED Department Discharge Care Plan Goals: Leave Banuelos in until Saturday morning and then remove. Return sooner if you develop any problems with the Banuelos catheter. - My Orders Last 24 Hours: My Active Orders 08/22/17 15:32 Urinary Catheter Assessment [RC] ASDIRECTED 08/22/17 15:45 Banuelos Catheter Insertion [Insert Urinary Catheter] [OM.PC] Q24H - Assessment/Plan Last 24 Hours: My Active Orders 08/22/17 15:32 Urinary Catheter Assessment [RC] ASDIRECTED 08/22/17 15:45 Banuelos Catheter Insertion [Insert Urinary Catheter] [OM.PC] Q24H
[2017-08-22 15:57] VITALS: BP 175/85
== END 2017-08-22 16:22 | disposition home or self-care (01) ==
LOC: JP.ED 15:07
DX: R33.9 Retention of urine, unspecified (principal); Z87.891 Personal history of nicotine dependence; I10 Essential (primary) hypertension; E78.00 Pure hypercholesterolemia, unspecified; E66.9 Obesity, unspecified; Z79.899 Other long term (current) drug therapy; Z79.82 Long term (current) use of aspirin; Z79.01 Long term (current) use of anticoagulants
CPT/HCPCS: 51702; 99283; 99283-25

== ENCOUNTER 2017-08-23 00:33 | Emergency (ER) | payer MEDICARE, BC ==
[2017-08-23 00:43] VITALS: BP 162/84
--- NOTE | 2017-08-23 01:38 | EDM.PDOC ---
ED HPI GENERAL MEDICAL PROBLEM - General Chief Complaint: Genitourinary Problem Stated Complaint: UNABLE TO URINATE Time Seen by Provider: 08/23/17 00:43 Source of Information: Reports: Patient, Family (Daughter) History Limitations: Reports: No Limitations - History of Present Illness INITIAL COMMENTS - FREE TEXT/NARRATIVE: urinary retention; this is a 86 year old male who had a indwelling loya cath placed 2 days ago for bladder retention.This evening noted urine leakage, pressure and scant amount of urine in leg bag. denies any fever, chills, nausea, vomiting. last bm on Saturday. Onset: Today Duration: Hour(s): Location: Reports: Abdomen Quality: Reports: Same as Previous Episode Severity: Moderate Improves with: Reports: None Worsens with: Reports: None Associated Symptoms: Reports: No Other Symptoms - Related Data Allergies Allergy/AdvReac Type Severity Reaction Status Date / Time No Known Allergies Allergy Verified 08/22/17 15:48 Home Meds: Home Meds Aspirin 81 mg PO DAILY 11/02/13 [History] Doxazosin [Cardura] 8 mg PO BEDTIME 11/02/13 [History] Levothyroxine [Synthroid] 75 mcg PO DAILY 11/02/13 [History] Lisinopril 40 mg PO DAILY 11/02/13 [History] Nitroglycerin [Nitrostat] 0.4 mg SL ASDIRECTED 11/02/13 [History] Vit B12/Fa/Pyridoxine HCl/AA15 [Glycotrol] 1,000 mg PO DAILY 11/02/13 [History] Vit D3/Folic Acid/B2/B6/B12 [Folgard Tablet] 1 each PO BEDTIME 11/02/13 [History ] amLODIPine [Norvasc] 5 mg PO BEDTIME 11/02/13 [History] atorvaSTATin [Lipitor] 40 mg PO BEDTIME 11/02/13 [History] Warfarin Sliding Scale [Coumadin Sliding Scale] 1 tab PO ASDIRECTED 06/15/14 [ History] Finasteride [Proscar] 5 mg PO DAILY 08/19/17 [History] Furosemide [Lasix] 40 mg PO DAILY 08/19/17 [History] Metoprolol Succinate [Toprol XL] 25 mg PO BEDTIME 08/19/17 [History] Potassium Chloride 20 meq PO DAILY 08/20/17 [History] Triamterene/Hydrochlorothiazid [Triamterene-HCTZ 37.5-25 MG] 1 cap PO BEDTIME [History] Acetaminophen/oxyCODONE [Percocet 325-5 MG] 1 tab PO Q6HR PRN #120 tablet [Rx] Aspirin [Ecotrin] 325 mg PO DAILY #30 tab.ec 08/21/17 [Rx] Tamsulosin [Flomax] 0.4 mg PO BID #16 cap.er 08/21/17 [Rx] Past Medical History HEENT History: Reports: Cataract, Macular Degeneration Cardiovascular History: Reports: High Cholesterol, Hypertension, CT, Pacemaker, SOB on Exertion, Stents, Other (See Below) Other Cardiovascular History: stent right leg- peripheral artery disease Respiratory History: Reports: SOB Gastrointestinal History: Reports: Colon Polyp Musculoskeletal History: Reports: Arthritis, Back Pain, Chronic, Other (See Below) Other Musculoskeletal History: left knee pain Neurological History: Reports: None Psychiatric History: Reports: None Endocrine/Metabolic History: Reports: Obesity/BMI 30+, Vitamin D Deficiency, Other (See Below) Other Endocrine/Metabolic History: borderline Hematologic History: Reports: None Immunologic History: Reports: None Oncologic (Cancer) History: Reports: Other (See Below) Other Oncologic History: skin-melanoma Dermatologic History: Reports: Benign Melanoma, Melanoma - Infectious Disease History Infectious Disease History: Reports: Chicken Pox, Herpes, Measles, Mumps - Past Surgical History Head Surgeries/Procedures: Reports: None HEENT Surgical History: Reports: Cataract Surgery Cardiovascular Surgical History: Reports: Carotid Stents, Pacer, Other (See Below) Other Cardiovascular Surgeries/Procedures: stent right leg Respiratory Surgical History: Reports: None GI Surgical History: Reports: Appendectomy, Colonoscopy, Hernia, Abdominal, Polypectomy Male Surgical History: Reports: None Endocrine Surgical History: Reports: None Neurological Surgical History: Reports: None Musculoskeletal Surgical History: Reports: None Other Musculoskeletal Surgeries/Procedures:: 08/20/17 partial left knee Oncologic Surgical History: Reports: None Dermatological Surgical History: Reports: Skin Biopsy, Other (See Below) Social & Family History - Family History Family Medical History: Noncontributory - Tobacco Use Smoking Status *Q: Former Smoker Years of Tobacco use: 30 Packs/Tins Daily: 1 Used Tobacco, but Quit: Yes Month Tobacco Last Used: august Second Hand Smoke Exposure: Yes - Caffeine Use Caffeine Use: Reports: Coffee - Alcohol Use Days Per Week of Alcohol Use: 1 Number of Drinks Per Day: 5 Total Drinks Per Week: 5 - Recreational Drug Use Recreational Drug Use: No ED ROS GENERAL - Review of Systems Review Of Systems: See Below Constitutional: Reports: No Symptoms : Reports: Incontinence, Pain, Urgency, Urinary Retention ED EXAM, GI/ABD - Physical Exam Exam: See Below Exam Limited By: No Limitations General Appearance: Alert, WD/WN, No Apparent Distress Eyes: Bilateral: Normal Appearance, EOMI GI/Abdominal Exam: Normal Bowel Sounds, Soft, Non-Tender, No Distention, Pelvis Stable (Male) Exam: Normal Inspection, Other (uncircumcised with loya cath. ) Rectal (Males) Exam: Deferred Psychiatric: Normal Affect, Normal Mood Course - Vital Signs Last Recorded V/S: Last Vital Signs Temp 35.9 C 08/23/17 00:54 Pulse 80 08/23/17 00:54 Resp 20 08/23/17 00:54 BP 162/84 H 08/23/17 00:54 Pulse Ox 95 08/23/17 00:54 - Orders/Labs/Meds Orders: Active Orders 24 hr Category Date Time Status Bladder Scan [RC] ONETIME Care 08/23/17 00:42 Active Labs: Laboratory Tests 08/23/17 Range/Units 01:13 Urine Color Yellow Urine Appearance Slightly cloudy Urine pH 6.5 (4.5-8.0) Ur Specific [place] 1.010 (1.008-1.030) Urine Protein Trace (NEGATIVE) mg/dL Urine Glucose (UA) 100 H (NEGATIVE) mg/dL Urine Ketones Negative (NEGATIVE) mg/dL Urine Occult Blood Large (NEGATIVE) Urine Nitrite Negative (NEGAITVE) Urine Bilirubin Negative (NEGATIVE) Urine Urobilinogen Normal (NORMAL) mg/dL Ur Leukocyte Esterase Moderate (NEGATIVE) Urine RBC 30-40 H (0-5) Urine WBC 5-10 H (0-5) Ur Epithelial Cells Rare Amorphous Sediment Not seen Urine Bacteria Few Urine Mucus Not seen - Re-Assessments/Exams Free Text/Narrative Re-Assessment/Exam: 08/23/17 bladder scan 294ml irrigated and reposition of leg bag. has immediate return of yellow clear urine. relief of symptoms noted. urine sent for ua with micro and urine culture. constipation -discussed restarting his colace and other stool softners. Departure - Departure Time of Disposition: 01:35 Disposition: Home, Self-Care 01 Condition: Good Clinical Impression: Retention of urine - Discharge Information Referrals: Job Otto NP [Primary Care Provider] - Forms: ED Department Discharge Care Plan Goals: Urinary Retention -resolved with bladder irrigation -continue present plan of care -call Primary Care Provider in am to set up appointment for follow up return to ER if has any further concerns or complications related to cath care. return immediately for any fever, chills, nausea, vomiting, no urine in bladder or any concerns. - Problem List & Annotations (1) Acute urinary retention SNOMED Code(s): 613300297 Code(s): R33.8 - OTHER RETENTION OF URINE Status: Acute Priority: High Current Visit: No - Problem List Review Problem List Initiated/Reviewed/Updated: Yes - My Orders Last 24 Hours: My Active Orders 08/23/17 00:42 Bladder Scan [RC] ONETIME - Assessment/Plan Last 24 Hours: My Active Orders 08/23/17 00:42 Bladder Scan [RC] ONETIME Plan: Urinary Retention -resolved with bladder irrigation -continue present plan of care -call Primary Care Provider in am to set up appointment for follow up return to ER if has any further concerns or complications related to cath care. return immediately for any fever, chills, nausea, vomiting, no urine in bladder or any concerns.
== END 2017-08-23 01:45 | disposition home or self-care (01) ==
LOC: JP.ED 00:33
DX: R33.9 Retention of urine, unspecified (principal); Z87.891 Personal history of nicotine dependence; I10 Essential (primary) hypertension; E78.00 Pure hypercholesterolemia, unspecified; E66.9 Obesity, unspecified; Z79.82 Long term (current) use of aspirin; Z79.899 Other long term (current) drug therapy
CPT/HCPCS: 51700; 51798; 81001; 99284-25

== ENCOUNTER 2017-08-23 17:02 | Emergency (ER) | payer MEDICARE, BC ==
[2017-08-23 17:31] VITALS: BP 162/72
--- NOTE | 2017-08-23 17:57 | EDM.PDOC ---
ED HPI GENERAL MEDICAL PROBLEM - General Chief Complaint: Genitourinary Problem Stated Complaint: CATHETER ISSUE Time Seen by Provider: 08/23/17 17:15 Source of Information: Reports: Patient History Limitations: Reports: No Limitations - History of Present Illness INITIAL COMMENTS - FREE TEXT/NARRATIVE: 86-year-old male seen for the third time in the last 2 days for acute urinary retention. A Banuelos was placed yesterday afternoon, had to be cleared last evening and worked well until this morning but became plugged again. He came in this afternoon uncomfortable. Severity: Moderate Penis Pain Score (Numeric/FACES): 1 - Related Data Allergies Allergy/AdvReac Type Severity Reaction Status Date / Time No Known Allergies Allergy Verified 08/23/17 17:31 Home Meds: Home Meds Aspirin 81 mg PO DAILY 11/02/13 [History] Doxazosin [Cardura] 8 mg PO BEDTIME 11/02/13 [History] Levothyroxine [Synthroid] 75 mcg PO DAILY 11/02/13 [History] Lisinopril 40 mg PO DAILY 11/02/13 [History] Nitroglycerin [Nitrostat] 0.4 mg SL ASDIRECTED 11/02/13 [History] Vit B12/Fa/Pyridoxine HCl/AA15 [Glycotrol] 1,000 mg PO DAILY 11/02/13 [History] Vit D3/Folic Acid/B2/B6/B12 [Folgard Tablet] 1 each PO BEDTIME 11/02/13 [History ] amLODIPine [Norvasc] 5 mg PO BEDTIME 11/02/13 [History] atorvaSTATin [Lipitor] 40 mg PO BEDTIME 11/02/13 [History] Warfarin Sliding Scale [Coumadin Sliding Scale] 1 tab PO ASDIRECTED 06/15/14 [ History] Finasteride [Proscar] 5 mg PO DAILY 08/19/17 [History] Furosemide [Lasix] 40 mg PO DAILY 08/19/17 [History] Metoprolol Succinate [Toprol XL] 25 mg PO BEDTIME 08/19/17 [History] Potassium Chloride 20 meq PO DAILY 08/20/17 [History] Triamterene/Hydrochlorothiazid [Triamterene-HCTZ 37.5-25 MG] 1 cap PO BEDTIME [History] Acetaminophen/oxyCODONE [Percocet 325-5 MG] 1 tab PO Q6HR PRN #120 tablet [Rx] Aspirin [Ecotrin] 325 mg PO DAILY #30 tab.ec 08/21/17 [Rx] Tamsulosin [Flomax] 0.4 mg PO BID #16 cap.er 08/21/17 [Rx] Past Medical History HEENT History: Reports: Cataract, Macular Degeneration Cardiovascular History: Reports: High Cholesterol, Hypertension, [place], Pacemaker, SOB on Exertion, Stents, Other (See Below) Other Cardiovascular History: stent right leg- peripheral artery disease Respiratory History: Reports: SOB Gastrointestinal History: Reports: Colon Polyp Musculoskeletal History: Reports: Arthritis, Back Pain, Chronic, Other (See Below) Other Musculoskeletal History: left knee pain Neurological History: Reports: None Psychiatric History: Reports: None Endocrine/Metabolic History: Reports: Obesity/BMI 30+, Vitamin D Deficiency, Other (See Below) Other Endocrine/Metabolic History: borderline Hematologic History: Reports: None Immunologic History: Reports: None Oncologic (Cancer) History: Reports: Other (See Below) Other Oncologic History: skin-melanoma Dermatologic History: Reports: Benign Melanoma, Melanoma - Infectious Disease History Infectious Disease History: Reports: Chicken Pox, Herpes, Measles, Mumps - Past Surgical History HEENT Surgical History: Reports: Cataract Surgery Cardiovascular Surgical History: Reports: Carotid Stents, Pacer, Other (See Below) Other Cardiovascular Surgeries/Procedures: stent right leg Respiratory Surgical History: Reports: None GI Surgical History: Reports: Appendectomy, Colonoscopy, Hernia, Abdominal, Polypectomy Other Male Surgeries/Procedures: URINARY RETENTION Endocrine Surgical History: Reports: None Neurological Surgical History: Reports: None Other Musculoskeletal Surgeries/Procedures:: 08/20/17 partial left knee Oncologic Surgical History: Reports: None Dermatological Surgical History: Reports: Skin Biopsy, Other (See Below) Social & Family History - Family History Family Medical History: Noncontributory - Tobacco Use Smoking Status *Q: Unknown Ever Smoked Years of Tobacco use: 30 Packs/Tins Daily: 1 Used Tobacco, but Quit: Yes Month Tobacco Last Used: august Second Hand Smoke Exposure: Yes - Caffeine Use Caffeine Use: Reports: Coffee - Alcohol Use Days Per Week of Alcohol Use: 1 Number of Drinks Per Day: 5 Total Drinks Per Week: 5 - Recreational Drug Use Recreational Drug Use: No ED ROS GENERAL - Review of Systems Review Of Systems: See Below Constitutional: Denies: Fever, Chills Respiratory: Denies: Shortness of Breath GI/Abdominal: Reports: Abdominal Pain : Reports: Other (A UA was checked last night, there was no infection) Neurological: Denies: Headache ED EXAM, RENAL/ - Physical Exam Exam: See Below Exam Limited By: No Limitations General Appearance: Alert, Moderate Distress (Patient is fairly uncomfortable from acute urinary retention) Respiratory/Chest: No Respiratory Distress GI/Abdominal: Distended, Other (Suprapubic area is tender) Course - Vital Signs Last Recorded V/S: Last Vital Signs Temp 97.2 F 08/23/17 17:09 Pulse 72 08/23/17 17:09 Resp 16 08/23/17 17:09 BP 162/72 H 08/23/17 17:09 Pulse Ox 92 L 08/23/17 17:09 - Re-Assessments/Exams Free Text/Narrative Re-Assessment/Exam: 08/23/17 17:54 The catheter was flushed, a clot removed and normal flow resumed. The urine in the bag was not red or bloody at all. We discussed removing the catheter tonight or tomorrow morning, the patient elected to leave it until tomorrow morning. He'll return tonight if it malfunctions again. He'll also return if the catheter is removed tomorrow and he redevelops urinary retention. Departure - Departure Time of Disposition: 18:05 Disposition: Home, Self-Care 01 Condition: Good Clinical Impression: Acute urinary retention Obstruction of Banuelos catheter Qualifiers: Encounter type: initial encounter Qualified Code(s): T83.091A - Other mechanical complication of indwelling urethral catheter, initial encounter - Discharge Information Instructions: Banuelos Catheter Care, Adult Referrals: Job Otto NP [Primary Care Provider] - Forms: ED Department Discharge Care Plan Goals: Remove Banuelos catheter tomorrow morning, return sooner if obstruction redevelops or return if retention occurs after removal of the catheter. If things go well consider rechecking urine in 1-2 weeks to confirm bleeding has stopped.
== END 2017-08-23 18:06 | disposition home or self-care (01) ==
LOC: JP.ED 17:02
DX: T83.091A Other mechanical complication of indwelling urethral catheter, initial encounter (principal); R33.9 Retention of urine, unspecified; I10 Essential (primary) hypertension; E78.00 Pure hypercholesterolemia, unspecified; E66.9 Obesity, unspecified; Z87.891 Personal history of nicotine dependence; Z79.01 Long term (current) use of anticoagulants; Z79.82 Long term (current) use of aspirin; Z79.899 Other long term (current) drug therapy
CPT/HCPCS: 51700; 51798; 81001; 99283-25; 99284; 99284-25

== ENCOUNTER 2018-07-06 08:45 | Emergency (ER) | payer MEDICARE, BC ==
[2018-07-06 08:59] VITALS: BP 165/72
--- NOTE | 2018-07-06 09:05 | EDM.PDOC ---
ED HPI GENERAL MEDICAL PROBLEM - General Chief Complaint: Lower Extremity Injury/Pain Stated Complaint: RIGHT ANKLE PAIN Time Seen by Provider: 07/06/18 09:00 Source of Information: Reports: Patient, Family History Limitations: Reports: No Limitations - History of Present Illness INITIAL COMMENTS - FREE TEXT/NARRATIVE: 87-year-old male with spontaneous development of pain in the right foot over the last 12 hours. No injury remembered. No fevers or chills. The pain is mostly the medial foot just underneath the medial malleolus. No swelling or bruising. No previous history of similar symptoms. Onset: Gradual (Over the past 12 hours) Location: Reports: Lower Extremity, Right Quality: Reports: Sharp, Stabbing Severity: Moderate Worsens with: Reports: Other (Weightbearing), Movement Associated Symptoms: Denies: Fever/Chills Right Ankle Pain Score (Numeric/FACES): 2 - Related Data Allergies Allergy/AdvReac Type Severity Reaction Status Date / Time No Known Allergies Allergy Verified 07/06/18 08:59 Home Meds: Home Meds Aspirin 81 mg PO DAILY 11/02/13 [History] Doxazosin [Cardura] 8 mg PO BEDTIME 11/02/13 [History] Levothyroxine [Synthroid] 75 mcg PO DAILY 11/02/13 [History] Lisinopril 40 mg PO DAILY 11/02/13 [History] Nitroglycerin [Nitrostat] 0.4 mg SL ASDIRECTED 11/02/13 [History] Vit B12/Fa/Pyridoxine HCl/AA15 [Glycotrol] 1,000 mg PO DAILY 11/02/13 [History] Vit D3/Folic Acid/B2/B6/B12 [Folgard Tablet] 1 each PO BEDTIME 11/02/13 [History ] amLODIPine [Norvasc] 5 mg PO BEDTIME 11/02/13 [History] atorvaSTATin [Lipitor] 40 mg PO BEDTIME 11/02/13 [History] Warfarin Sliding Scale [Coumadin Sliding Scale] 1 tab PO ASDIRECTED 06/15/14 [ History] Finasteride [Proscar] 5 mg PO DAILY 08/19/17 [History] Furosemide [Lasix] 40 mg PO DAILY 08/19/17 [History] Metoprolol Succinate [Toprol XL] 25 mg PO BEDTIME 08/19/17 [History] Potassium Chloride 20 meq PO DAILY 08/20/17 [History] Triamterene/Hydrochlorothiazid [Triamterene-HCTZ 37.5-25 MG] 1 cap PO BEDTIME [History] Tamsulosin [Flomax] 0.4 mg PO BID #16 cap.er 08/21/17 [Rx] Past Medical History HEENT History: Reports: Cataract, Macular Degeneration Cardiovascular History: Reports: High Cholesterol, Hypertension, [place], Pacemaker, SOB on Exertion, Stents, Other (See Below) Other Cardiovascular History: stent right leg- peripheral artery disease Respiratory History: Reports: SOB Gastrointestinal History: Reports: Colon Polyp Musculoskeletal History: Reports: Arthritis, Back Pain, Chronic Other Musculoskeletal History: left knee pain Neurological History: Reports: None Psychiatric History: Reports: None Endocrine/Metabolic History: Reports: Obesity/BMI 30+, Vitamin D Deficiency, Other (See Below) Other Endocrine/Metabolic History: borderline Hematologic History: Reports: None Immunologic History: Reports: None Oncologic (Cancer) History: Reports: Other (See Below) Other Oncologic History: skin-melanoma Dermatologic History: Reports: Benign Melanoma, Melanoma - Infectious Disease History Infectious Disease History: Reports: Chicken Pox, Herpes, Measles, Mumps - Past Surgical History Head Surgeries/Procedures: Reports: None HEENT Surgical History: Reports: Cataract Surgery Cardiovascular Surgical History: Reports: Carotid Stents, Pacer, Other (See Below) Other Cardiovascular Surgeries/Procedures: stent right leg Respiratory Surgical History: Reports: None GI Surgical History: Reports: Appendectomy, Colonoscopy, Hernia, Abdominal, Polypectomy Male Surgical History: Reports: None Other Male Surgeries/Procedures: URINARY RETENTION Endocrine Surgical History: Reports: None Neurological Surgical History: Reports: None Musculoskeletal Surgical History: Reports: None Other Musculoskeletal Surgeries/Procedures:: 08/20/17 partial left knee Oncologic Surgical History: Reports: None Dermatological Surgical History: Reports: Skin Biopsy, Other (See Below) Social & Family History - Family History Family Medical History: Noncontributory - Tobacco Use Smoking Status *Q: Never Smoker - Caffeine Use Caffeine Use: Reports: Soda - Recreational Drug Use Recreational Drug Use: No Review of Systems - Review of Systems Review Of Systems: See Below Respiratory: Reports: No Symptoms Cardiovascular: Denies: Chest Pain Skin: Reports: Other (Persistent erythema of the anterior aspect of the left lower leg) Neurological: Denies: Paresthesia Psychiatric: Reports: No Symptoms ED EXAM, GENERAL - Physical Exam Exam: See Below Exam Limited By: No Limitations General Appearance: Alert, No Apparent Distress Respiratory/Chest: No Respiratory Distress Extremities: Other (Exam of the feet show symmetry, there is no significant swelling or deformity of the right foot. No erythema or bruising. He is very tender to palpation just under the medial malleolus over the deltoid ligament.) Skin Exam: Other (Some chronic venous stasis changes of the skin of the lower extremities anteriorly, mild erythema on the left side with excoriations) Course - Vital Signs Last Recorded V/S: Last Vital Signs Temp 95.9 F 07/06/18 08:57 Pulse 65 07/06/18 08:57 Resp 20 07/06/18 08:57 BP 165/72 H 07/06/18 08:57 Pulse Ox 96 07/06/18 08:57 - Orders/Labs/Meds Orders: Active Orders 24 hr Category Date Time Status Foot Comp Min 3V Rt [CR] Stat Exams 07/06/18 09:02 Taken - Re-Assessments/Exams Free Text/Narrative Re-Assessment/Exam: 07/06/18 09:41 An x-ray of the right foot was obtained, there are some degenerative changes of the first MP joint but that is not the area of pain. The painful area appears normal on x-ray. A three-inch Dilan wrap was applied to the foot which provided some support, and I would like to have him rechecked by podiatry in the next 1- 2 days. He'll be given 10 hydrocodone for extra pain control. He has a walker at home, he'll use that until recheck. 07/06/18 09:44 Patient will be placed on the clinic follow-up to see Dr. Mcfadden tomorrow or Saturday. Departure - Departure Time of Disposition: 10:01 Disposition: Home, Self-Care 01 Condition: Good Clinical Impression: Bursitis of right ankle - Discharge Information Instructions: Bursitis, [id number] Referrals: Job Otto PLANT SUPERINTENDENT [Primary Care Provider] - Forms: ED Department Discharge Care Plan Goals: Wrap foot for support and comfort, activity as tolerated. Use pain medications as prescribed if needed. Recheck Saturday or Saturday with Dr. Mcfadden at the clinic if you're not improving satisfactorily. - My Orders Last 24 Hours: My Active Orders 07/06/18 09:02 Foot Comp Min 3V Rt [CR] Stat - Assessment/Plan Last 24 Hours: My Active Orders 07/06/18 09:02 Foot Comp Min 3V Rt [CR] Stat
--- NOTE | 2018-07-07 09:06 | CR ---
FOOT RIGHT 3 views CLINICAL HISTORY:Medial foot pain, no trauma FINDINGS:There is moderate osteoarthritic change at the first MTP joint with bunion formation. There is subcortical cyst formation in the distal metatarsal. There is soft tissue ossification. There is s oft tissue swelling in the forefoot. Patient has a calcaneal spur. 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
== END 2018-07-06 10:01 | disposition home or self-care (01) ==
LOC: JP.ED 08:45
DX: M77.51 Other enthesopathy of right foot and ankle (principal); I10 Essential (primary) hypertension; E66.9 Obesity, unspecified; Z79.82 Long term (current) use of aspirin; Z79.899 Other long term (current) drug therapy
CPT/HCPCS: 73630-26-RT; 73630-RT; 99284

== ENCOUNTER 2018-11-04 10:36 | Emergency (ER) | payer MEDICARE, BC ==
--- NOTE | 2018-11-04 11:44 | EDM.PDOC ---
ED HPI GENERAL MEDICAL PROBLEM - General Chief Complaint: Neuro Symptoms/Deficits Stated Complaint: VISION PROBLEMS Time Seen by Provider: 11/04/18 11:27 Source of Information: Reports: Patient, Family, RN Notes Reviewed History Limitations: Reports: No Limitations - History of Present Illness INITIAL COMMENTS - FREE TEXT/NARRATIVE: 87-year-old gentleman presents to the emergency department today, sent over from his eye care provider, he states he's been having problems with her vision for the last 3 days in that images will shift at distance, per his reports his eye care provider could not find any abnormality he did did do a dilated eye exam, he was sent to the emergency department for evaluation stroke. He complains of no focal neurologic deficits and the remainder review of systems is negative - Related Data Allergies Allergy/AdvReac Type Severity Reaction Status Date / Time No Known Allergies Allergy Verified 11/04/18 10:58 Home Meds: Home Meds Doxazosin [Cardura] 8 mg PO BEDTIME 11/02/13 [History] Levothyroxine [Synthroid] 75 mcg PO DAILY 11/02/13 [History] Lisinopril 40 mg PO DAILY 11/02/13 [History] Nitroglycerin [Nitrostat] 0.4 mg SL ASDIRECTED 11/02/13 [History] Vit B12/Fa/Pyridoxine HCl/AA15 [Glycotrol] 1,000 mg PO DAILY 11/02/13 [History] Vit D3/Folic Acid/B2/B6/B12 [Folgard Tablet] 1 each PO BEDTIME 11/02/13 [History ] amLODIPine [Norvasc] 5 mg PO BEDTIME 11/02/13 [History] atorvaSTATin [Lipitor] 40 mg PO BEDTIME 11/02/13 [History] Warfarin Sliding Scale [Coumadin Sliding Scale] 1 tab PO ASDIRECTED 06/15/14 [ History] Finasteride [Proscar] 5 mg PO DAILY 08/19/17 [History] Furosemide [Lasix] 40 mg PO DAILY 08/19/17 [History] Metoprolol Succinate [Toprol XL] 25 mg PO BEDTIME 08/19/17 [History] Potassium Chloride 20 meq PO DAILY 08/20/17 [History] Triamterene/Hydrochlorothiazid [Triamterene-HCTZ 37.5-25 MG] 1 cap PO BEDTIME [History] Tamsulosin [Flomax] 0.4 mg PO BID #16 cap.er 08/21/17 [Rx] Past Medical History HEENT History: Reports: Cataract, Macular Degeneration Cardiovascular History: Reports: CAD, High Cholesterol, Hypertension, [place], Pacemaker, SOB on Exertion, Stents, Other (See Below) Other Cardiovascular History: stent right leg- peripheral artery disease Respiratory History: Reports: SOB Gastrointestinal History: Reports: Colon Polyp Genitourinary History: Reports: Retention, Urinary Musculoskeletal History: Reports: Arthritis, Back Pain, Chronic Other Musculoskeletal History: left knee pain Endocrine/Metabolic History: Reports: Obesity/BMI 30+, Vitamin D Deficiency, Other (See Below) Other Endocrine/Metabolic History: borderline Oncologic (Cancer) History: Reports: Other (See Below) Other Oncologic History: skin-melanoma Dermatologic History: Reports: Benign Melanoma, Melanoma - Infectious Disease History Infectious Disease History: Reports: Chicken Pox, Measles, Mumps - Past Surgical History Head Surgeries/Procedures: Reports: None HEENT Surgical History: Reports: Cataract Surgery Cardiovascular Surgical History: Reports: Carotid Stents, Pacer, Other (See Below) Other Cardiovascular Surgeries/Procedures: stent right leg Respiratory Surgical History: Reports: None GI Surgical History: Reports: Appendectomy, Colonoscopy, Hernia, Abdominal, Polypectomy Male Surgical History: Reports: None Other Male Surgeries/Procedures: URINARY RETENTION Endocrine Surgical History: Reports: None Neurological Surgical History: Reports: None Musculoskeletal Surgical History: Reports: None Other Musculoskeletal Surgeries/Procedures:: 08/20/17 partial left knee Oncologic Surgical History: Reports: None Dermatological Surgical History: Reports: Skin Biopsy, Other (See Below) Social & Family History - Family History Family Medical History: Noncontributory - Tobacco Use Smoking Status *Q: Former Smoker Used Tobacco, but Quit: Yes Month/Year Tobacco Last Used: 1977 Second Hand Smoke Exposure: No - Caffeine Use Caffeine Use: Reports: Coffee - Alcohol Use Days Per Week of Alcohol Use: 1 Number of Drinks Per Day: 4 Total Drinks Per Week: 4 Date of Last Drink: 10/24/18 Time of Last Drink: 20:00 - Recreational Drug Use Recreational Drug Use: No ED ROS GENERAL - Review of Systems Review Of Systems: See Below Constitutional: Reports: No Symptoms HEENT: Reports: Vision Change Respiratory: Reports: No Symptoms Cardiovascular: Reports: No Symptoms GI/Abdominal: Reports: No Symptoms : Reports: No Symptoms Musculoskeletal: Reports: No Symptoms Skin: Reports: No Symptoms Neurological: Reports: No Symptoms ED EXAM, NEURO - Physical Exam Exam: See Below Text/Narrative:: General: Male, not in any distress, alert and oriented x3 HEENT: head is atraumatic normocephalic, eyes pupils equal round reactive to light, sclera clear no conjunctivitis appreciated, extraocular eye movements intact. Ears tympanic membranes clear and jin landmarks and light reflex are present bilaterally canals are clear. Nose no septal deviation, nares are clear, no blood present. Mouth mucosa is moist and pink no erythema or exudate noted in soft palate, tongue is midline uvula is midline, dentition is intact. Neck: Supple no thyromegaly no tracheal deviation. Nodes: Cervical nodes subclavicular nodes nontender no palpable lymphadenopathy noted. Lungs: clear to auscultation bilaterally with symmetrical respirations, no adventitious noise appreciated. CV: Regular rate and rhythm S1 and S2 appreciated no murmurs rubs or gallops noted. Abdomen: Soft, nontender, no palpable masses or organomegaly appreciated, no distention no guarding bowel sounds are present, [. Neuro: Cranial nerves II test with pupillary light reflex 7 mm to 6 mm bilaterally, CN III test pupillary constriction, lid elevation and eye abduction bilaterally, CN IV downward movement of eyes bilaterally, CN V good jaw movement, CN lateral deviation of the eyes bilaterally to finger movement , CN VII symmetrical smile shows teeth without difficulty, CN VIII pass finger rub to ears bilaterally, CN IX adequate voice and tone, CN X adequate voice and tone no difficulty swallowing, CN XI can shrug shoulders without difficulty, CN XII can stick tongue out without difficulty, cranial nerves II to XII intact as tested, power is 5 out 5 in upper and lower extremities, patellar reflex, biceps reflex +2 can do finger to nose without difficulty, no dysdiadochokinesis , no difficulty with rapid alternating movements can do [id number] without difficulty, Romberg is negative, has adequate gait , no focal neurologic deficit , was taken to the eye chart at 20 feet could still read the eye chart however did not describe seeing the eye chart at a place Skin: Warm and dry, intact Extremities: No lower extremity edema appreciated Course - Vital Signs Last Recorded V/S: Last Vital Signs Temp 96.4 F 11/04/18 10:51 Pulse 60 11/04/18 13:08 Resp 16 11/04/18 13:08 BP 159/84 H 11/04/18 13:08 Pulse Ox 93 L 11/04/18 13:08 - Orders/Labs/Meds Orders: Active Orders 24 hr Category Date Time Status EKG Documentation Completion [RC] ASDIRECTED Care 11/04/18 11:40 Active Head wo Cont [CT] Urgent Exams 11/04/18 11:39 Taken EKG 12 Lead [EK] Urgent Ther 11/04/18 11:39 Ordered Labs: Laboratory Tests 11/04/18 11/04/18 Range/Units 11:47 11:47 WBC 5.2 (4.5-11.0) K/uL RBC 5.53 (4.30-5.90) M/uL Hgb 16.2 H D (12.0-15.0) g/dL Hct 45.5 (40.0-54.0) % MCV 82 (80-98) fL MCH 29 (27-31) pg MCHC 36 (32-36) % Plt Count 102 L (150-400) K/uL Neut % (Auto) 71 H (36-66) % Lymph % (Auto) 23 L (24-44) % [place] % (Auto) 5 (2-6) % Eos % (Auto) 2 (2-4) % Baso % (Auto) 0 (0-1) % ESR 5 (0-20) mm/hr Sodium 135 L (140-148) mmol/L Potassium 4.4 (3.6-5.2) mmol/L Chloride 98 L (100-108) mmol/L Carbon Dioxide 31 (21-32) mmol/L Anion Gap 10.4 (5.0-14.0) mmol/L BUN 19 H (7-18) mg/dL Creatinine 1.5 H (0.8-1.3) mg/dL Est Cr Clr Drug Dosing 36.00 mL/min Estimated GFR (MDRD) 44 L (>60) Glucose 512 H* (74-106) mg/dL Calcium 10.2 H D (8.5-10.1) mg/dL Total Bilirubin 1.5 H D (0.2-1.0) mg/dL AST 12 L (15-37) U/L ALT 27 (12-78) U/L Alkaline Phosphatase 119 H D (46-116) U/L Total Protein 6.6 (6.4-8.2) g/dL Albumin 3.7 (3.4-5.0) g/dL Globulin 2.9 (2.3-3.5) g/dL Albumin/Globulin Ratio 1.3 (1.2-2.2) Meds: Medications Discontinued Medications Generic Name Dose Route Start Last Admin Trade Name Bisi PRN Reason Stop Dose Admin Insulin Human Regular 6 unit 11/04/18 12:34 11/04/18 13:26 Humulin R SUBCUT 11/04/18 12:35 6 units ONETIME ONE Administration Protocol Departure - Departure Time of Disposition: 14:16 Disposition: Home, Self-Care 01 Condition: Fair 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 - Discharge Information Referrals: Job Otto MANUGRAPHER [Primary Care Provider] - Forms: ED Department Discharge Additional Instructions: Please fill your prescriptions for insulin today, start your insulin today, please keep your follow-up appointments, call return to the emergency department with worsening of symptoms - My Orders Last 24 Hours: My Active Orders 11/04/18 11:39 Head wo Cont [CT] Urgent EKG 12 Lead [EK] Urgent 11/04/18 11:40 EKG Documentation Completion [RC] ASDIRECTED - Assessment/Plan Last 24 Hours: My Active Orders 11/04/18 11:39 Head wo Cont [CT] Urgent EKG 12 Lead [EK] Urgent 11/04/18 11:40 EKG Documentation Completion [RC] ASDIRECTED Plan: Assessment Acuity = acute Site and laterality = new diagnosis diabetes mellitus type 2 Etiology = unclear etiology Manifestations = change in vision Location of injury = Home Lab values = CBC unremarkable creatinine elevated 1.5 consistent chronic renal failure stage G IIIB glucose markedly elevated 512 consistent with hyperglycemia bilirubin up at 1.[address] scan of the head is unremarkable, EKG demonstrates a atrial paced no ST changes are noted Plan He was provided 6 units insulin while in the ED as well as consultation with diabetic education plan is to start Lantus 6 units subcutaneous at 2100 followed by short acting insulin per his formulary 2 units before each meal as well as diabetic supplies he has a follow-up with his primary care on the 12th of this month he'll report for lab work tomorrow morning and any has a follow- up with diabetic education and one week This note was dictated using [employer] voice recognition software please call with any questions on syntax or grammar.
[2018-11-04] MEDS ORDERED: Insulin Regular, Human 100 Units/ML 3 ML Vial SUBCUT ONE (12:34)
[2018-11-04 13:09] VITALS: BP 159/84
== END 2018-11-04 14:25 | disposition home or self-care (01) ==
LOC: JP.ED 10:36
DX: E11.9 Type 2 diabetes mellitus without complications (principal); I10 Essential (primary) hypertension; E66.9 Obesity, unspecified; Z79.899 Other long term (current) drug therapy; Z87.891 Personal history of nicotine dependence
CPT/HCPCS: 36415; 70450; 80053; 85025; 85651; 93005; 99284; J1815; 93010; 99283

== ENCOUNTER 2018-11-05 14:33 | Inpatient (IN) | payer MEDICARE, BC ==
--- NOTE | 2018-11-05 15:18 | PCM.SN ---
- Free Text/Narrative Note: This gentleman presented to the emergency department via EMS services for hypoglycemia and confusion, I had the opportunity to evaluate him yesterday for similar complaints found to be new onset diabetes mellitus type 2 did have a consultation with diabetes education was started on insulin unfortunately his blood sugars remain high I did review the case with the hospitalist service they felt rather than any further workup in the emergency department they would just do a direct admission and get his blood sugar under control. Therefore I did not do any evaluation of this gentleman while in the emergency department care was immediately turned over to hospital service
[2018-11-05] MEDS ORDERED: Insulin Lispro 100 Unit/ML 3 ML KwikPen SUBCUT ONE ×4 (15:45→23:21)
--- NOTE | 2018-11-05 16:14 | PCM.HP ---
H&P History of Present Illness - General Date of Service: 11/05/18 Admit Problem/Dx: Admission Diagnosis/Problem Admission Diagnosis/Problem Hyperglycemia Source of Information: Patient, Family, Provider, RN Notes Reviewed History Limitations: Reports: No Limitations - History of Present Illness Initial Comments - Free Text/Narative: Mr. Sabillon is an 87-year-old gentleman who was admitted through the emergency department for management of persistent hyperglycemia secondary to type 2 diabetes mellitus He reports that he has had borderline diabetes for the past few years. Recently he is noted symptoms of increased fatigue and weakness associated with blurring of his vision. He was in the emergency department yesterday and found to have blood sugar of greater than 500. Insolent therapy was initiated after he was seen by the nursing educator. Unfortunately he continues to have blurred vision and blood sugar remains significantly elevated in the range of 450. Because of ongoing symptoms he presented to the emergency department again for further evaluation and management. He otherwise reports that he been feeling fairly well until symptoms started over the past few weeks. He denies any symptoms of underlying infection and on evaluation has no other significant metabolic or electrolyte abnormalities. - Related Data Allergies/Adverse Reactions: Allergies Allergy/AdvReac Type Severity Reaction Status Date / Time No Known Allergies Allergy Verified 11/04/18 10:58 Home Medications: Home Meds Doxazosin [Cardura] 8 mg PO BEDTIME 11/02/13 [History] Levothyroxine [Synthroid] 75 mcg PO DAILY 11/02/13 [History] Lisinopril 40 mg PO DAILY 11/02/13 [History] Nitroglycerin [Nitrostat] 0.4 mg SL ASDIRECTED 11/02/13 [History] Vit B12/Fa/Pyridoxine HCl/AA15 [Glycotrol] 1,000 mg PO DAILY 11/02/13 [History] Vit D3/Folic Acid/B2/B6/B12 [Folgard Tablet] 1 each PO BEDTIME 11/02/13 [History ] amLODIPine [Norvasc] 5 mg PO BEDTIME 11/02/13 [History] atorvaSTATin [Lipitor] 40 mg PO BEDTIME 11/02/13 [History] Warfarin Sliding Scale [Coumadin Sliding Scale] 1 tab PO ASDIRECTED 06/15/14 [ History] Finasteride [Proscar] 5 mg PO DAILY 08/19/17 [History] Furosemide [Lasix] 40 mg PO DAILY 08/19/17 [History] Metoprolol Succinate [Toprol XL] 25 mg PO BEDTIME 08/19/17 [History] Potassium Chloride 20 meq PO DAILY 08/20/17 [History] Triamterene/Hydrochlorothiazid [Triamterene-HCTZ 37.5-25 MG] 1 cap PO BEDTIME [History] Tamsulosin [Flomax] 0.4 mg PO BID #16 cap.er 08/21/17 [Rx] Past Medical History HEENT History: Reports: Cataract, Macular Degeneration Cardiovascular History: Reports: CAD, High Cholesterol, Hypertension, DC, Pacemaker, SOB on Exertion, Stents, Other (See Below) Other Cardiovascular History: stent right leg- peripheral artery disease Respiratory History: Reports: SOB Gastrointestinal History: Reports: Colon Polyp Genitourinary History: Reports: Retention, Urinary Musculoskeletal History: Reports: Arthritis, Back Pain, Chronic Other Musculoskeletal History: left knee pain Neurological History: Reports: None Psychiatric History: Reports: None Endocrine/Metabolic History: Reports: Obesity/BMI 30+, Vitamin D Deficiency, Other (See Below) Other Endocrine/Metabolic History: borderline Hematologic History: Reports: None Immunologic History: Reports: None Oncologic (Cancer) History: Reports: Other (See Below) Other Oncologic History: skin-melanoma Dermatologic History: Reports: Benign Melanoma, Melanoma - Infectious Disease History Infectious Disease History: Reports: Chicken Pox, Measles, Mumps - Past Surgical History Head Surgeries/Procedures: Reports: None HEENT Surgical History: Reports: Cataract Surgery Cardiovascular Surgical History: Reports: Carotid Stents, Pacer, Other (See Below) Other Cardiovascular Surgeries/Procedures: stent right leg Respiratory Surgical History: Reports: None GI Surgical History: Reports: Appendectomy, Colonoscopy, Hernia, Abdominal, Polypectomy Male Surgical History: Reports: None Other Male Surgeries/Procedures: URINARY RETENTION Endocrine Surgical History: Reports: None Neurological Surgical History: Reports: None Musculoskeletal Surgical History: Reports: None Other Musculoskeletal Surgeries/Procedures:: 08/20/17 partial left knee Oncologic Surgical History: Reports: None Dermatological Surgical History: Reports: Skin Biopsy, Other (See Below) Social & Family History - Family History Family Medical History: Noncontributory - Tobacco Use Smoking Status *Q: Former Smoker Used Tobacco, but Quit: Yes Month/Year Tobacco Last Used: 1977 - Caffeine Use Caffeine Use: Reports: Coffee - Alcohol Use Days Per Week of Alcohol Use: 1 Number of Drinks Per Day: 4 Total Drinks Per Week: 4 - Recreational Drug Use Recreational Drug Use: No H&P Review of Systems - Review of Systems: Review Of Systems: See Below General: Reports: Weakness, Fatigue. Denies: Fever, Chills HEENT: Reports: Other (Blurred vision). Denies: Eye Pain, Headaches Pulmonary: Reports: No Symptoms Cardiovascular: Reports: No Symptoms Gastrointestinal: Reports: No Symptoms Genitourinary: Reports: No Symptoms Musculoskeletal: Reports: No Symptoms Skin: Reports: No Symptoms Psychiatric: Reports: Confusion, Hallucinations (Visual). Denies: Depression, Anxiety, Agitation Neurological: Reports: Confusion. Denies: Headache, Numbness, Paresthesia, Pre- Existing Deficit Hematologic/Lymphatic: Reports: No Symptoms Immunologic: Reports: No Symptoms Exam - Exam Exam: See Below - Vital Signs Vital Signs: Last Vital Signs Temp 95.7 F 11/05/18 15:48 Pulse 60 11/05/18 15:48 Resp 16 11/05/18 15:48 BP 150/78 H 11/05/18 15:48 Pulse Ox 97 11/05/18 15:48 Weight: 245 lb - Exam Quality Assessment: DVT Prophylaxis General: Alert, Oriented, Cooperative, Mild Distress HEENT: Conjunctiva Clear, Hearing Intact, Mucosa Moist & [place], Normal Nasal Septum, Posterior Pharynx Clear, Pupils Equal Neck: Supple, Trachea Midline, +2 Carotid Pulse wo Bruit Lungs: Clear to Auscultation, Normal Respiratory Effort Cardiovascular: Regular Rate, Normal S1, Normal S2, Irregular Rhythm. No: Systolic Murmur, Diastolic Murmur GI/Abdominal Exam: Soft, Non-Tender, No Organomegaly, No Distention Back Exam: Normal Inspection, Full Range of Motion Extremities: Non-Tender, Pedal Edema Skin: Warm, Dry Neurological: Cranial Nerves Intact, Strength Equal Bilateral, Normal Speech, Normal Tone, Sensation Intact. No: Focal Deficit Neuro Extensive - Mental Status: Alert, Oriented x3, Normal Mood/Affect, Normal Cognition, Memory Intact - Patient Data Lab Results Last 24 hrs: Laboratory Results - last 24 hr 11/05/18 11/05/18 11/05/18 Range/Units 15:06 15:06 15:06 WBC 4.8 (4.5-11.0) K/uL RBC 5.08 (4.30-5.90) M/uL Hgb 15.1 H (12.0-15.0) g/dL Hct 42.0 (40.0-54.0) % MCV 83 (80-98) fL MCH 30 (27-31) pg MCHC 36 (32-36) % Plt Count 102 L (150-400) K/uL Neut % (Auto) 63 (36-66) % Lymph % (Auto) 29 (24-44) % [place] % (Auto) 6 (2-6) % Eos % (Auto) 2 (2-4) % Baso % (Auto) 0 (0-1) % Sodium 135 L (140-148) mmol/L Potassium 4.2 (3.6-5.2) mmol/L Chloride 98 L (100-108) mmol/L Carbon Dioxide 30 (21-32) mmol/L Anion Gap 11.2 (5.0-14.0) mmol/L BUN 23 H (7-18) mg/dL Creatinine 1.5 H (0.8-1.3) mg/dL Est Cr Clr Drug Dosing 34.83 mL/min Estimated GFR (MDRD) 44 L (>60) Glucose 469 H* (74-106) mg/dL Lactic Acid 2.2 H (0.4-2.0) mmol/L Calcium 9.2 (8.5-10.1) mg/dL Total Bilirubin 1.1 H (0.2-1.0) mg/dL AST 12 L (15-37) U/L ALT 24 (12-78) U/L Alkaline Phosphatase 102 (46-116) U/L Total Protein 5.8 L (6.4-8.2) g/dL Albumin 3.2 L (3.4-5.0) g/dL Globulin 2.6 (2.3-3.5) g/dL Albumin/Globulin Ratio 1.2 (1.2-2.2) Result Diagrams: 11/05/18 15:06 11/05/18 15:06 *Q Meaningful Use (ADM) - VTE *Q VTE Pharmacological Contraindications *Q: High INR Value - VTE Risk Assess *Q Each Risk Factor Represents 1 Point: Swollen Legs, Current, Obesity ( BMI > 25 kg/m2) Total Score 1 Point Risk Factors: 2 Each Risk Factor Represents 2 Points: None Total Score 2 Point Risk Factors: 0 Each Risk Factor Represents 3 Points: Age 75 Years or Greater Total Score 3 Point Risk Factors: 3 Each Risk Factor Represents 5 Points: None Total Score 5 Point Risk Factors: 0 Venous Thromboembolism Risk Factor Score *Q: 5 Problem List Initiated/Reviewed/Updated: Yes Orders Last 24hrs: Active Orders 24 hr Category Date Time Status Patient Status Manage Transfer [TRANSFER] Routine ADT 11/05/18 15:36 Active INR,PT,PROTHROMBIN TIME [COAG] Stat Lab 11/05/18 15:46 Received Resuscitation Status Routine Resus Stat 11/05/18 15:39 Ordered Assessment/Plan Comment:: ASSESSMENT AND PLAN UNCONTROLLED TYPE 2 DIABETES MELLITUS-with severe hyperglycemia. Unfortunately he has failed outpatient management, insulin initiated in the emergency department yesterday was insufficient to control his significant hyperglycemia. He is not a candidate for metformin because of his chronic kidney disease stage III with a GFR of 36. No evidence of significant underlying infection or other metabolic abnormality -extension educator consult -Dietary consult -4 times a day glucometers -Lantus insulins 20 units subcutaneous daily at bedtime -Moderate dose sliding scale Humulog ATRIAL FIBRILLATION-on long-term oral anticoagulation with warfarin -Warfarin 7.5 mg by mouth daily -INR now and in a.m. MAINTENANCE ISSUES -DVT prophylaxis; current therapy with warfarin should provide adequate DVT prophylaxis -GI prophylaxis; not indicated -Banuelos catheter; not indicated -Nutrition; consistent carb diet -Nicotine dependence; not required CODE STATUS-FULL CODE ADMISSION STATUS-patient will be admitted to inpatient status, expect at least a 2 night hospital stay for evaluation and management of problems as outlined above. At the time of this admission I do not reasonably expected evaluation and management of this problem will require more than a 96 hour hospital stay. DISPOSITION-anticipate discharge to home after the hospital stay. PRIMARY CARE PROVIDER-Job Otto
[2018-11-05] MEDS ORDERED: Sodium Chloride 0.9% 10 ML Syringe FLUSH PRN (17:28)
[2018-11-05] MEDS ORDERED: 50% Dextrose in Water 50 ML Syringe IV PRN (17:28)
[2018-11-05] MEDS ORDERED: Acetaminophen 325 MG Tab PO PRN (17:28)
[2018-11-05] MEDS ORDERED: Ondansetron 4 MG/2 ML SDV IV PRN (17:28)
[2018-11-05] MEDS ORDERED: Glucose Gel 15 GM in 37.5 GM Tube PO PRN (17:28)
[2018-11-05] MEDS: Sodium Chloride 0.9% 1,000 ML IV SCH (18:01)
[2018-11-05] MEDS: Insulin Lispro 100 Unit/ML 3 ML KwikPen SUBCUT SCH ×2 (18:08→23:46)
[2018-11-05] MEDS ORDERED: Insulin Glargine,Human Rec. Analog 100 Units/ML 3 ML Pen SUBCUT SCH (21:00)
[2018-11-05] MEDS: Melatonin 3 MG Tab PO SCH (21:45)
[2018-11-05] MEDS: Doxazosin 4 MG Tab PO SCH (21:45)
[2018-11-05] MEDS: atorvaSTATin 20 MG Tab PO SCH (21:46)
[2018-11-05] MEDS: Metoprolol Succinate 25 MG Tab.ER PO SCH (21:46)
[2018-11-05] MEDS: Hydrochlorothiazide/Triamterene 25-37.5 Tab PO SCH (21:46)
[2018-11-05] MEDS: amLODIPine 5 MG Tab PO SCH (21:48)
[2018-11-05] MEDS: Tamsulosin 0.4 MG Cap.ER PO SCH (21:48)
[2018-11-06] MEDS: Sodium Chloride 0.9% 1,000 ML IV SCH ×2 (01:54→09:33)
--- NOTE | 2018-11-06 03:44 | PCM.SN ---
- Free Text/Narrative Note: call from [address] [place] [address] time: 21:10 date 11/05/2018 o: blood glucose >400 a; hyperglycemia p; give Lispro 15 units subcut now recheck blood glucose at 2300
[2018-11-06] MEDS: Insulin Lispro 100 Unit/ML 3 ML KwikPen SUBCUT SCH ×4 (08:19→20:55)
[2018-11-06] MEDS: Levothyroxine 25 MCG Tab PO SCH (08:21)
[2018-11-06] MEDS: Furosemide 40 MG Tab PO SCH (08:21)
[2018-11-06] MEDS: Finasteride 5 MG Tab PO SCH (08:22)
[2018-11-06] MEDS: Potassium Chloride 20 MEQ Tab.ER PO SCH (08:22)
[2018-11-06] MEDS: Tamsulosin 0.4 MG Cap.ER PO SCH ×2 (08:22→20:59)
[2018-11-06] MEDS: Lisinopril 20 MG Tab PO SCH (08:24)
[2018-11-06] MEDS ORDERED: Warfarin 2.5 MG Tab PO ONE (10:00)
[2018-11-06] MEDS ORDERED: Insulin Lispro 100 Unit/ML 3 ML KwikPen SUBCUT ONE ×2 (11:45→17:45)
[2018-11-06 14:03] LABS: HEMOGLOBIN A1C 9.8 % (4.5-6.2)
--- NOTE | 2018-11-06 15:18 | PCM.PN ---
- General Info Date of Service: 11/06/18 Subjective Update: Mr. Sabillon has continued to experience hyperglycemia since admission. Glucose levels were in the 400 range last night and into the global program director hours. Better this morning with a glucose level of 183. He feels improved with increased energy, confusion and visual changes have resolved. - Review of Systems General: Reports: No Symptoms Pulmonary: Reports: No Symptoms Cardiovascular: Reports: No Symptoms Gastrointestinal: Reports: No Symptoms - Patient Data Vitals - Most Recent: Last Vital Signs Temp 96.4 F 11/06/18 12:13 Pulse 70 11/06/18 12:13 Resp 16 11/06/18 12:13 BP 109/58 L 11/06/18 12:13 Pulse Ox 96 11/06/18 12:13 Weight - Most Recent: 253 lb 3.2 oz I&O - Last 24 Hours: Intake & Output 11/06/18 11/06/18 11/06/18 06:59 14:59 22:59 Intake Total 1446 120 Balance 1446 120 Lab Results Last 24 Hours: Laboratory Results - last 24 hr 11/05/18 11/05/18 11/05/18 Range/Units 15:06 15:06 15:06 WBC 4.8 (4.5-11.0) K/uL RBC 5.08 (4.30-5.90) M/uL Hgb 15.1 H (12.0-15.0) g/dL Hct 42.0 (40.0-54.0) % MCV 83 (80-98) fL MCH 30 (27-31) pg MCHC 36 (32-36) % Plt Count 102 L (150-400) K/uL Neut % (Auto) 63 (36-66) % Lymph % (Auto) 29 (24-44) % [place] % (Auto) 6 (2-6) % Eos % (Auto) 2 (2-4) % Baso % (Auto) 0 (0-1) % PT (9.5-12.0) sec INR (0.80-1.20) Sodium 135 L (140-148) mmol/L Potassium 4.2 (3.6-5.2) mmol/L Chloride 98 L (100-108) mmol/L Carbon Dioxide 30 (21-32) mmol/L Anion Gap 11.2 (5.0-14.0) mmol/L BUN 23 H (7-18) mg/dL Creatinine 1.5 H (0.8-1.3) mg/dL Est Cr Clr Drug Dosing 34.83 mL/min Estimated GFR (MDRD) 44 L (>60) Glucose 469 H* (74-106) mg/dL Hemoglobin A1c (4.5-6.2) % Lactic Acid 2.2 H (0.4-2.0) mmol/L Calcium 9.2 (8.5-10.1) mg/dL Magnesium (1.8-2.4) mg/dL Total Bilirubin 1.1 H (0.2-1.0) mg/dL AST 12 L (15-37) U/L ALT 24 (12-78) U/L Alkaline Phosphatase 102 (46-116) U/L Total Protein 5.8 L (6.4-8.2) g/dL Albumin 3.2 L (3.4-5.0) g/dL Globulin 2.6 (2.3-3.5) g/dL Albumin/Globulin Ratio 1.2 (1.2-2.2) TSH, Ultra Sensitive (0.358-3.740) uIU/mL 11/05/18 11/06/18 11/06/18 Range/Units 15:46 04:50 04:50 WBC (4.5-11.0) K/uL RBC (4.30-5.90) M/uL Hgb (12.0-15.0) g/dL Hct (40.0-54.0) % MCV (80-98) fL MCH (27-31) pg MCHC (32-36) % Plt Count (150-400) K/uL Neut % (Auto) (36-66) % Lymph % (Auto) (24-44) % [place] % (Auto) (2-6) % Eos % (Auto) (2-4) % Baso % (Auto) (0-1) % PT 15.7 H 15.7 H (9.5-12.0) sec INR 1.46 H 1.46 H (0.80-1.20) Sodium (140-148) mmol/L Potassium (3.6-5.2) mmol/L Chloride (100-108) mmol/L Carbon Dioxide (21-32) mmol/L Anion Gap (5.0-14.0) mmol/L BUN (7-18) mg/dL Creatinine (0.8-1.3) mg/dL Est Cr Clr Drug Dosing mL/min Estimated GFR (MDRD) (>60) Glucose (74-106) mg/dL Hemoglobin A1c (4.5-6.2) % Lactic Acid (0.4-2.0) mmol/L Calcium (8.5-10.1) mg/dL Magnesium (1.8-2.4) mg/dL Total Bilirubin (0.2-1.0) mg/dL AST (15-37) U/L ALT (12-78) U/L Alkaline Phosphatase (46-116) U/L Total Protein (6.4-8.2) g/dL Albumin (3.4-5.0) g/dL Globulin (2.3-3.5) g/dL Albumin/Globulin Ratio (1.2-2.2) TSH, Ultra Sensitive 3.438 (0.358-3.740) uIU/mL 11/06/18 11/06/18 11/06/18 Range/Units 04:50 04:50 04:50 WBC 6.4 (4.5-11.0) K/uL RBC 5.26 (4.30-5.90) M/uL Hgb 15.3 H (12.0-15.0) g/dL Hct 43.5 (40.0-54.0) % MCV 83 (80-98) fL MCH 29 (27-31) pg MCHC 35 (32-36) % Plt Count 103 L (150-400) K/uL Neut % (Auto) 66 (36-66) % Lymph % (Auto) 26 (24-44) % [place] % (Auto) 6 (2-6) % Eos % (Auto) 2 (2-4) % Baso % (Auto) 0 (0-1) % PT (9.5-12.0) sec INR (0.80-1.20) Sodium 140 (140-148) mmol/L Potassium 4.0 (3.6-5.2) mmol/L Chloride 104 (100-108) mmol/L Carbon Dioxide 29 (21-32) mmol/L Anion Gap 7.5 (5.0-14.0) mmol/L BUN 22 H (7-18) mg/dL Creatinine 1.5 H (0.8-1.3) mg/dL Est Cr Clr Drug Dosing 34.83 mL/min Estimated GFR (MDRD) 44 L (>60) Glucose 183 H (74-106) mg/dL Hemoglobin A1c 9.8 H (4.5-6.2) % Lactic Acid (0.4-2.0) mmol/L Calcium 9.2 (8.5-10.1) mg/dL Magnesium 1.6 L (1.8-2.4) mg/dL Total Bilirubin (0.2-1.0) mg/dL AST (15-37) U/L ALT (12-78) U/L Alkaline Phosphatase (46-116) U/L Total Protein (6.4-8.2) g/dL Albumin (3.4-5.0) g/dL Globulin (2.3-3.5) g/dL Albumin/Globulin Ratio (1.2-2.2) TSH, Ultra Sensitive (0.358-3.740) uIU/mL Med Orders - Current: Current Medications Acetaminophen (Tylenol) 650 mg PO Q4H PRN PRN Reason: Pain (Mild 1-3)/fever Last Admin: 11/06/18 11:23 Dose: 650 mg Amlodipine Besylate (Norvasc) 5 mg PO BEDTIME [facility] Last Admin: 11/05/18 21:48 Dose: 5 mg Atorvastatin Calcium (Lipitor) 40 mg PO BEDTIME [facility] Last Admin: 11/05/18 21:46 Dose: 40 mg Dextrose (Glutose 15) 15 gm PO ONETIME PRN PRN Reason: Hypoglycemia Dextrose/Water (Dextrose 50% In Water) 50 ml IV ONETIME PRN PRN Reason: Hypoglycemia Doxazosin Mesylate (Cardura) 8 mg PO BEDTIME [facility] Last Admin: 11/05/18 21:45 Dose: 8 mg Finasteride (Proscar) 5 mg PO DAILY [facility] Last Admin: 11/06/18 08:22 Dose: 5 mg Furosemide (Lasix) 40 mg PO DAILY [facility] Last Admin: 11/06/18 08:21 Dose: 40 mg Insulin Glargine (Lantus Solostar) 30 units SUBCUT BEDTIME [facility] Insulin Human Lispro (Humalog) 0 unit SUBCUT QIDACANDBED [facility]; Protocol Last Admin: 11/06/18 11:45 Dose: Not Given Levothyroxine Sodium (Levothyroxine) 75 mcg PO ACBREAKFAST [facility] Last Admin: 11/06/18 08:21 Dose: 75 mcg Lisinopril (Prinivil) 40 mg PO DAILY [facility] Last Admin: 11/06/18 08:24 Dose: 40 mg Melatonin (Melatonin) 9 mg PO BEDTIME [facility] Last Admin: 11/05/18 21:45 Dose: 9 mg Metoprolol Succinate (Toprol Xl) 25 mg PO BEDTIME [facility] Last Admin: 11/05/18 21:46 Dose: 25 mg Ondansetron HCl (Zofran) 4 mg IV Q4H PRN PRN Reason: Nausea/Vomiting Potassium Chloride (Klor-Con M20) 20 meq PO DAILY [facility] Last Admin: 11/06/18 08:22 Dose: 20 meq Sodium Chloride (Saline Flush) 10 ml FLUSH ASDIRECTED PRN PRN Reason: Keep Vein Open Tamsulosin HCl (Flomax) 0.4 mg PO BID [facility] Last Admin: 11/06/18 08:22 Dose: 0.4 mg Triamterene/HCTZ (Maxzide 25-37.5 Mg) 1 each PO BEDTIME [facility] Last Admin: 11/05/18 21:46 Dose: 1 each Warfarin Sodium (Coumadin) 7.5 mg PO DAILY@1300 [facility] Discontinued Medications Sodium Chloride (Normal Saline) 1,000 mls @ 125 mls/hr IV ASDIRECTED [facility] Last Admin: 11/06/18 09:33 Dose: 125 mls/hr Insulin Glargine (Lantus Solostar) 20 units SUBCUT BEDTIME [facility] Last Admin: 11/05/18 21:53 Dose: 20 units Insulin Human Lispro (Humalog) 12 unit SUBCUT ONETIME ONE Stop: 11/05/18 15:46 Last Admin: 11/05/18 15:56 Dose: 12 units Insulin Human Lispro (Humalog) 8 unit SUBCUT ONETIME ONE Stop: 11/05/18 18:08 Last Admin: 11/05/18 18:32 Dose: 8 units Insulin Human Lispro (Humalog) 15 unit SUBCUT ONETIME ONE Stop: 11/05/18 21:10 Last Admin: 11/05/18 21:42 Dose: 15 units Insulin Human Lispro (Humalog) 15 unit SUBCUT ONETIME ONE Stop: 11/05/18 23:22 Last Admin: 11/05/18 23:46 Dose: 15 units Insulin Human Lispro (Humalog) 14 unit SUBCUT ONETIME ONE Stop: 11/06/18 11:46 Last Admin: 11/06/18 11:39 Dose: 14 units Warfarin Sodium (Coumadin) 7.5 mg PO ONETIME ONE Stop: 11/06/18 10:01 Last Admin: 11/06/18 10:54 Dose: 7.5 mg - Exam Quality Assessment: DVT Prophylaxis General: Alert, Oriented, Cooperative, No Acute Distress Lungs: Clear to Auscultation, Normal Respiratory Effort Cardiovascular: Regular Rate, Regular Rhythm, No Murmurs GI/Abdominal Exam: Soft, Non-Tender, No Organomegaly, No Distention Extremities: Non-Tender, No Pedal Edema - Problem List Review Problem List Initiated/Reviewed/Updated: Yes - My Orders Last 24 Hours: My Active Orders 11/05/18 15:39 Resuscitation Status Routine 11/05/18 17:28 Patient Status [ADT] Routine Ambulate [RC] QID Blood Glucose Check, Bedside [RC] QIDACANDBED Communication Order [RC] STAT Diabetes Education [RC] Click to Edit Height and Weight [RC] DAILY Intake and Output [RC] QSHIFT Notify Provider Vital Signs [RC] ASDIRECTED Notify Provider [RC] PRN Oxygen Therapy [RC] PRN Peripheral IV Care [RC] . DIRECTED Up With Assistance [RC] ASDIRECTED Up to Chair [RC] QID VTE/DVT Education [RC] Per Unit Routine Vital Signs [RC] Q4H Consult to Diabetic Nurse Specialist [CONS] Routine Consult to Windows System Admin [CONS] Routine Acetaminophen [Tylenol] 650 mg PO Q4H PRN Dextrose 50% in Water 50 ml IV ONETIME PRN Dextrose [Glutose 15] 15 gm PO ONETIME PRN Insulin Lispro [HumaLOG] See Protocol SUBCUT QIDACANDBED Ondansetron [Zofran] 4 mg IV Q4H PRN Sodium Chloride 0.9% [Saline Flush] 10 ml FLUSH ASDIRECTED PRN Peripheral IV Insertion Adult [OM.PC] Routine VTE Pharmacological Contraindications [AST] Per Unit Routine 11/05/18 21:00 Doxazosin [Cardura] 8 mg PO BEDTIME HCTZ/Triamterene [Maxzide 25-37.5 MG] 1 each PO BEDTIME Melatonin 9 mg PO BEDTIME Metoprolol Succinate [Toprol XL] 25 mg PO BEDTIME Tamsulosin [Flomax] 0.4 mg PO BID amLODIPine [Norvasc] 5 mg PO BEDTIME atorvaSTATin [Lipitor] 40 mg PO BEDTIME 11/06/18 07:30 Levothyroxine 75 mcg PO ACBREAKFAST 11/06/18 09:00 Finasteride [Proscar] 5 mg PO DAILY Furosemide [Lasix] 40 mg PO DAILY Lisinopril [Prinivil] 40 mg PO DAILY Potassium Chloride [Klor-Con M20] 20 meq PO DAILY 11/06/18 16:30 GLUCOSE POC LAB TO COLLECT [POC] QIDACANDBED 11/06/18 21:00 GLUCOSE POC LAB TO COLLECT [POC] QIDACANDBED Insulin Glarg,Human.Rec.Analog [LantUS Solostar] 30 units SUBCUT BEDTIME 11/07/18 05:00 BASIC METABOLIC PANEL,BMP [CHEM] Timed MAGNESIUM [CHEM] Timed 11/07/18 07:30 GLUCOSE POC LAB TO COLLECT [POC] QIDACANDBED 11/07/18 11:30 GLUCOSE POC LAB TO COLLECT [POC] QIDACANDBED 11/07/18 13:00 Warfarin [Coumadin] 7.5 mg PO DAILY@1300 11/07/18 16:30 GLUCOSE POC LAB TO COLLECT [POC] QIDACANDBED 11/07/18 21:00 GLUCOSE POC LAB TO COLLECT [POC] QIDACANDBED 11/08/18 07:30 GLUCOSE POC LAB TO COLLECT [POC] QIDACANDBED 11/08/18 11:30 GLUCOSE POC LAB TO COLLECT [POC] QIDACANDBED 11/08/18 16:30 GLUCOSE POC LAB TO COLLECT [POC] QIDACANDBED 11/08/18 21:00 GLUCOSE POC LAB TO COLLECT [POC] QIDACANDBED 11/09/18 07:30 GLUCOSE POC LAB TO COLLECT [POC] QIDACANDBED 11/09/18 11:30 GLUCOSE POC LAB TO COLLECT [POC] QIDACANDBED 11/09/18 16:30 GLUCOSE POC LAB TO COLLECT [POC] QIDACANDBED 11/09/18 21:00 GLUCOSE POC LAB TO COLLECT [POC] QIDACANDBED 11/10/18 07:30 GLUCOSE POC LAB TO COLLECT [POC] QIDACANDBED 11/10/18 11:30 GLUCOSE POC LAB TO COLLECT [POC] QIDACANDBED 11/10/18 16:30 GLUCOSE POC LAB TO COLLECT [POC] QIDACANDBED - Plan Plan:: ASSESSMENT AND PLAN UNCONTROLLED TYPE 2 DIABETES MELLITUS-we'll go slow levels remained elevated last night but are significantly improved this morning. He feels improved since admission yesterday with less weakness and resolution of confusion as well as visual changes. -life skills educator consult -Dietary consult -4 times a day glucometers -Lantus insulins 30 units subcutaneous daily at bedtime -Moderate dose sliding scale Humulog ATRIAL FIBRILLATION-on long-term oral anticoagulation with warfarin, INR this morning subtherapeutic -Warfarin 7.5 mg by mouth daily -INR in a.m. MAINTENANCE ISSUES -DVT prophylaxis; current therapy with warfarin should provide adequate DVT prophylaxis -GI prophylaxis; not indicated -Banuelos catheter; not indicated -Nutrition; consistent carb diet -Nicotine dependence; not required CODE STATUS-FULL CODE ADMISSION STATUS-patient will be admitted to inpatient status, expect at least a 2 night hospital stay for evaluation and management of problems as outlined above. At the time of this admission I do not reasonably expected evaluation and management of this problem will require more than a 96 hour hospital stay. DISPOSITION-anticipate discharge to home after the hospital stay. PRIMARY CARE PROVIDER-Job Otto
[2018-11-06] MEDS ORDERED: Warfarin 2.5 MG Tab PO SCH (16:07)
[2018-11-06] MEDS: Magnesium Sulfate/Water 2 GM in Premix Bag 1 BAG IV SCH ×2 (17:17→22:51)
[2018-11-06] MEDS: Doxazosin 4 MG Tab PO SCH (20:57)
[2018-11-06] MEDS ORDERED: Insulin Glargine,Human Rec. Analog 100 Units/ML 3 ML Pen SUBCUT SCH (21:00)
[2018-11-06] MEDS: Magnesium Oxide 400 MG Tab PO SCH (21:02)
[2018-11-06] MEDS: atorvaSTATin 20 MG Tab PO SCH (21:02)
[2018-11-06] MEDS: Hydrochlorothiazide/Triamterene 25-37.5 Tab PO SCH (21:03)
[2018-11-06] MEDS: Melatonin 3 MG Tab PO SCH (21:03)
[2018-11-06] MEDS: amLODIPine 5 MG Tab PO SCH (21:03)
[2018-11-06] MEDS: Metoprolol Succinate 25 MG Tab.ER PO SCH (21:04)
[2018-11-07] MEDS: Insulin Lispro 100 Unit/ML 3 ML KwikPen SUBCUT SCH ×2 (07:26→11:31)
[2018-11-07] MEDS: Levothyroxine 25 MCG Tab PO SCH (07:27)
[2018-11-07] MEDS: Lisinopril 20 MG Tab PO SCH (09:29)
[2018-11-07] MEDS: Furosemide 40 MG Tab PO SCH (09:29)
[2018-11-07] MEDS: Magnesium Oxide 400 MG Tab PO SCH (09:29)
[2018-11-07] MEDS: Finasteride 5 MG Tab PO SCH (09:30)
[2018-11-07] MEDS: Potassium Chloride 20 MEQ Tab.ER PO SCH (09:31)
[2018-11-07] MEDS: Tamsulosin 0.4 MG Cap.ER PO SCH (09:31)
[2018-11-07 11:49] VITALS: BP 135/74
--- NOTE | 2018-11-07 12:49 | PCM.DCSUM1 ---
Discharge Summary - Hospital Course Brief History: Mr. Sabillon is an 87-year-old gentleman who was admitted through the emergency department with severe hyperglycemia secondary to uncontrolled type 2 diabetes mellitus. - Discharge Data Discharge Date: 11/07/18 Discharge Disposition: Home, Self-Care 01 Condition: Fair - Discharge Diagnosis/Problem(s) (1) Hyperglycemia due to type 2 diabetes mellitus SNOMED Code(s): 013051593354678, [id number] ICD Code: E11.65 - TYPE 2 DIABETES MELLITUS WITH HYPERGLYCEMIA Status: Acute Current Visit: Yes (2) Diabetes mellitus type 2 SNOMED Code(s): 10890482 ICD Code: E11.9 - TYPE 2 DIABETES MELLITUS WITHOUT COMPLICATIONS Status: Chronic Current Visit: No - Patient Summary/Data Consults: Consultations 11/05/18 17:28 Consult to Diabetic Nurse Specialist [CONS] Routine Comment: Physician Instructions: Consult to Filter Plant Supervisor [CONS] Routine Comment: Physician Instructions: Quantity: 11/06/18 20:30 PT Evaluation and Treatment [CONS] Routine Please Evaluate and Treat. PT Reason for Consult: weakness Special Instructions: assess for strength and usage of a walker. This query below is only for informational purposes and is not editable. Admission Diagnosis/Problem: Hyperglycemia Hospital Course: Mr. Sabillon is an 87-year-old gentleman who was admitted through the emergency department for management of persistent hyperglycemia secondary to type 2 diabetes mellitus He reports that he has had borderline diabetes for the past few years. Recently he has noted symptoms of increased fatigue and weakness associated with blurring of his vision. He was in the emergency department yesterday and found to have blood sugar of greater than 500. Insulin therapy was initiated after he was seen by the provider enrollment specialist. Unfortunately he continues to have blurred vision and blood sugar remains significantly elevated in the range of 450. Because of ongoing symptoms he presented to the emergency department again for further evaluation and management. He otherwise reports that he been feeling fairly well until symptoms started over the past few weeks. He denies any symptoms of underlying infection and on evaluation has no other significant metabolic or electrolyte abnormalities. Doses of long acting and short acting insulin or increased upwards throughout the hospital stay until glucose levels became within more reasonable range. He was feeling significantly improved as his blood sugar came under better control with resolution of visual symptoms, lightheadedness, and weakness. Will be discharged home on 35 units of Levemir at bedtime and 13 units of Humalog with meals. He will monitor blood glucose levels 4 times daily. Follow-up appointment will be made with the provider enrollment specialist for November 12. As well as a follow-up appointment with his primary care provider. Activity will be as tolerated and he will remain on a diabetic diet. He was seen during his hospital stay by both the provider enrollment specialist and dietitian for recommendations concerning management of diet and insulin. - Patient Instructions Diet: Diabetic Diet Activity: As Tolerated Other/Special Instructions: Monitor glucose levels 4 times daily until seen for follow-up by provider enrollment specialist. Call for instructions on insolent management if glucose is less than 100. - Discharge Plan *PRESCRIPTION DRUG MONITORING PROGRAM REVIEWED*: Not Applicable *COPY OF PRESCRIPTION DRUG MONITORING REPORT IN PATIENT DELIA: Not Applicable Prescriptions/Med Rec: Insulin Detemir [Levemir Flextouch] 35 unit SQ TIDMEALS #1 ml Home Medications: Home Meds Doxazosin [Cardura] 8 mg PO BEDTIME 11/02/13 [History] Levothyroxine [Synthroid] 75 mcg PO DAILY 11/02/13 [History] Lisinopril 40 mg PO DAILY 11/02/13 [History] Nitroglycerin [Nitrostat] 0.4 mg SL ASDIRECTED 11/02/13 [History] Vit B12/Fa/Pyridoxine HCl/AA15 [Glycotrol] 1,000 mg PO DAILY 11/02/13 [History] Vit D3/Folic Acid/B2/B6/B12 [Folgard Tablet] 1 each PO BEDTIME 11/02/13 [History ] amLODIPine [Norvasc] 5 mg PO BEDTIME 11/02/13 [History] atorvaSTATin [Lipitor] 40 mg PO BEDTIME 11/02/13 [History] Warfarin Sliding Scale [Coumadin Sliding Scale] 1 tab PO ASDIRECTED 06/15/14 [ History] Finasteride [Proscar] 5 mg PO DAILY 08/19/17 [History] Furosemide [Lasix] 40 mg PO DAILY 08/19/17 [History] Metoprolol Succinate [Toprol XL] 25 mg PO BEDTIME 08/19/17 [History] Potassium Chloride 20 meq PO DAILY 08/20/17 [History] Triamterene/Hydrochlorothiazid [Triamterene-HCTZ 37.5-25 MG] 1 cap PO BEDTIME [History] Tamsulosin [Flomax] 0.4 mg PO BID #16 cap.er 08/21/17 [Rx] Insulin Detemir [Levemir Flextouch] 35 unit SQ TIDMEALS #1 ml 11/07/18 [Rx] Insulin Lispro [Humalog] 13 unit SUBCUT TIDMEALS #0 pen 11/07/18 [Rx] Referrals: Griselda Reddy DO [Ordering Only Provider] - 11/12/18 9:00 am (Appointment with Griselda Reddy at [facility] Andrea Carreno MD [Consulting Physician] - 11/11/18 8:30 am [facility] [Ordering Only Provider] - 11/10/18 2:45 pm Moira Pineda [Registered Dietitian] - 11/12/18 3:30 pm Job Otto NP [Primary Care Provider] - 11/11/18 10:00 am - Discharge Summary/Plan Comment DC Time >30 min.: No - Patient Data Vitals - Most Recent: Last Vital Signs Temp 96.4 F 11/07/18 11:00 Pulse 59 L 11/07/18 11:00 Resp 18 11/07/18 11:00 BP 135/74 11/07/18 11:00 Pulse Ox 95 11/07/18 11:00 Weight - Most Recent: 253 lb 3.2 oz I&O - Last 24 hours: Intake & Output 11/06/18 11/07/18 11/07/18 22:59 06:59 14:59 Intake Total 530 920 Balance 530 920 Lab Results - Last 24 hrs: Laboratory Results - last 24 hr 11/06/18 11/07/18 Range/Units 04:50 05:39 Sodium 139 L (140-148) mmol/L Potassium 3.6 (3.6-5.2) mmol/L Chloride 106 (100-108) mmol/L Carbon Dioxide 26 (21-32) mmol/L Anion Gap 10.6 (5.0-14.0) mmol/L BUN 24 H (7-18) mg/dL Creatinine 1.3 (0.8-1.3) mg/dL Est Cr Clr Drug Dosing 40.34 mL/min Estimated GFR (MDRD) 52 L (>60) Glucose 221 H (74-106) mg/dL Hemoglobin A1c 9.8 H (4.5-6.2) % Calcium 8.9 (8.5-10.1) mg/dL Magnesium 2.5 H (1.8-2.4) mg/dL Med Orders - Current: Current Medications Acetaminophen (Tylenol) 650 mg PO Q4H PRN PRN Reason: Pain (Mild 1-3)/fever Last Admin: 11/06/18 11:23 Dose: 650 mg Amlodipine Besylate (Norvasc) 5 mg PO BEDTIME [facility] Last Admin: 11/06/18 21:03 Dose: 5 mg Atorvastatin Calcium (Lipitor) 40 mg PO BEDTIME [facility] Last Admin: 11/06/18 21:02 Dose: 40 mg Dextrose (Glutose 15) 15 gm PO ONETIME PRN PRN Reason: Hypoglycemia Dextrose/Water (Dextrose 50% In Water) 50 ml IV ONETIME PRN PRN Reason: Hypoglycemia Doxazosin Mesylate (Cardura) 8 mg PO BEDTIME [facility] Last Admin: 11/06/18 20:57 Dose: 8 mg Finasteride (Proscar) 5 mg PO DAILY [facility] Last Admin: 11/07/18 09:30 Dose: 5 mg Furosemide (Lasix) 40 mg PO DAILY [facility] Last Admin: 11/07/18 09:29 Dose: 40 mg Insulin Glargine (Lantus Solostar) 30 units SUBCUT BEDTIME [facility] Last Admin: 11/06/18 21:01 Dose: 30 units Insulin Human Lispro (Humalog) 0 unit SUBCUT QIDACANDBED [facility]; Protocol Last Admin: 11/07/18 11:31 Dose: 4 units Levothyroxine Sodium (Levothyroxine) 75 mcg PO ACBREAKFAST [facility] Last Admin: 11/07/18 07:27 Dose: 75 mcg Lisinopril (Prinivil) 40 mg PO DAILY [facility] Last Admin: 11/07/18 09:29 Dose: 40 mg Magnesium Oxide (Magnesium Oxide) 400 mg PO BID [facility] Last Admin: 11/07/18 09:29 Dose: 400 mg Melatonin (Melatonin) 9 mg PO BEDTIME [facility] Last Admin: 11/06/18 21:03 Dose: 9 mg Metoprolol Succinate (Toprol Xl) 25 mg PO BEDTIME [facility] Last Admin: 11/06/18 21:04 Dose: 25 mg Ondansetron HCl (Zofran) 4 mg IV Q4H PRN PRN Reason: Nausea/Vomiting Potassium Chloride (Klor-Con M20) 20 meq PO DAILY [facility] Last Admin: 11/07/18 09:31 Dose: 20 meq Sodium Chloride (Saline Flush) 10 ml FLUSH ASDIRECTED PRN PRN Reason: Keep Vein Open Last Admin: 11/07/18 07:36 Dose: 10 ml Tamsulosin HCl (Flomax) 0.4 mg PO BID [facility] Last Admin: 11/07/18 09:31 Dose: 0.4 mg Triamterene/HCTZ (Maxzide 25-37.5 Mg) 1 each PO BEDTIME [facility] Last Admin: 11/06/18 21:03 Dose: 1 each Warfarin Sodium (Coumadin) 7.5 mg PO DAILY@1300 [facility] Last Admin: 11/07/18 12:33 Dose: 7.5 mg Discontinued Medications Sodium Chloride (Normal Saline) 1,000 mls @ 125 mls/hr IV ASDIRECTED [facility] Last Admin: 11/06/18 09:33 Dose: 125 mls/hr Magnesium Sulfate 2 gm/ Premix 50 mls @ 25 mls/hr IV Q6H [facility] Stop: 11/07/18 00:59 Last Admin: 11/06/18 22:51 Dose: 25 mls/hr Insulin Glargine (Lantus Solostar) 20 units SUBCUT BEDTIME [facility] Last Admin: 11/05/18 21:53 Dose: 20 units Insulin Human Lispro (Humalog) 12 unit SUBCUT ONETIME ONE Stop: 11/05/18 15:46 Last Admin: 11/05/18 15:56 Dose: 12 units Insulin Human Lispro (Humalog) 8 unit SUBCUT ONETIME ONE Stop: 11/05/18 18:08 Last Admin: 11/05/18 18:32 Dose: 8 units Insulin Human Lispro (Humalog) 15 unit SUBCUT ONETIME ONE Stop: 11/05/18 21:10 Last Admin: 11/05/18 21:42 Dose: 15 units Insulin Human Lispro (Humalog) 15 unit SUBCUT ONETIME ONE Stop: 11/05/18 23:22 Last Admin: 11/05/18 23:46 Dose: 15 units Insulin Human Lispro (Humalog) 14 unit SUBCUT ONETIME ONE Stop: 11/06/18 11:46 Last Admin: 11/06/18 11:39 Dose: 14 units Insulin Human Lispro (Humalog) 14 unit SUBCUT ONETIME ONE Stop: 11/06/18 17:46 Last Admin: 11/06/18 17:38 Dose: 14 units Warfarin Sodium (Coumadin) 7.5 mg PO ONETIME ONE Stop: 11/06/18 10:01 Last Admin: 11/06/18 10:54 Dose: 7.5 mg - Exam General: Reports: Alert, Oriented, Cooperative, No Acute Distress Lungs: Reports: Clear to Auscultation, Normal Respiratory Effort Cardiovascular: Reports: Regular Rate, No Murmurs, Irregular Rhythm GI/Abdominal Exam: Soft, Non-Tender, No Organomegaly, No Distention Extremities: Non-Tender, No Pedal Edema *Q Meaningful Use (DIS) - VTE *Q VTE Pharmacological Contraindications *Q: High INR Value
[2018-11-07] MEDS ORDERED: Warfarin 2.5 MG Tab PO SCH (13:00)
== END 2018-11-07 13:45 | disposition home or self-care (01) | DRG 639 ==
LOC: JP.ED 14:33 → JP.MS 15:36
PROVIDERS: ADMIT Hospitalist; ATTEND Hospitalist
DX: E11.65 Type 2 diabetes mellitus with hyperglycemia (principal); R41.0 Disorientation, unspecified; I48.91 Unspecified atrial fibrillation; Z79.01 Long term (current) use of anticoagulants; I12.9 Hypertensive chronic kidney disease with stage 1 through stage 4 chronic kidney disease, or unspecified chronic kidney disease; E11.22 Type 2 diabetes mellitus with diabetic chronic kidney disease; N18.3 Chronic kidney disease, stage 3 (moderate); Z79.4 Long term (current) use of insulin; I25.10 Atherosclerotic heart disease of native coronary artery without angina pectoris; I25.2 Old myocardial infarction; E78.00 Pure hypercholesterolemia, unspecified; Z95.0 Presence of cardiac pacemaker; Z95.5 Presence of coronary angioplasty implant and graft; M19.90 Unspecified osteoarthritis, unspecified site; M54.9 Dorsalgia, unspecified; G89.29 Other chronic pain; E55.9 Vitamin D deficiency, unspecified; Z85.820 Personal history of malignant melanoma of skin; Z87.891 Personal history of nicotine dependence; E66.9 Obesity, unspecified; Z68.37 Body mass index [BMI] 37.0-37.9, adult
CPT/HCPCS: 36415; 80048; 80053; 82962; 83036; 83605; 83735; 84443; 85025; 85610; 97116-GP; 97161-GP; 99285; A9270-GY; J1815; J1815-GY; J3475; J7030

== ENCOUNTER 2021-05-08 05:16 | Emergency (ER) | payer MEDICARE, BC ==
[2021-05-08 05:27] VITALS: BP 155/80; PULSE 84
[2021-05-08] MEDS ORDERED: Ketorolac 30 MG/ML SDV IM ONE (05:46)
[2021-05-08] MEDS ORDERED: fentaNYL 25 MCG/HR Transdermal Patch TRDERM SCH (06:15)
--- NOTE | 2021-05-08 06:16 | EDM.PDOC ---
ED HPI GENERAL MEDICAL PROBLEM - General Chief Complaint: Back Pain or Injury Stated Complaint: BACK PAIN Time Seen by Provider: 05/08/21 05:50 Source of Information: Reports: Patient, Family, Old Records, RN History Limitations: Reports: No Limitations - History of Present Illness INITIAL COMMENTS - FREE TEXT/NARRATIVE: 89 yo male presents with uncontrolled chronic low back pain as his complaint. He was placed on a 12 mcg fentanyl patch by his provider for this pain and it is not giving him adequate relief. He had a CT scan in 03/19 that showed severe lumbar degeneration. Over time he has been to pain clinics and had orthopedic consults as well as PT all without relief. He is not sleeping due to the pain. He has a f/u appt finally with his primary this coming Saturday, but doesn't want to wait due to the not sleeping. There is no new sx with this pain such as bowel or bladder dysfunction or radiation down a leg or leg weakness/numbness. He is here with a stacker driver. He is on warfarin so not able to take chronic NSAID's. Onset: Unknown/Unsure Duration: Chronic, Getting Worse Location: Reports: Back Quality: Reports: Ache Severity: Severe Improves with: Reports: Medication Worsens with: Reports: Other (time), Movement Context: Reports: Other (see HPI) Associated Symptoms: Reports: No Other Symptoms Treatments LINE O SCRIBE OPERATOR: Reports: Other (see below) (Fentanyl 12 mcg patch) back pain Pain Score (Numeric/FACES): 6 - Related Data Allergies Allergy/AdvReac Type Severity Reaction Status Date / Time No Known Allergies Allergy Verified 05/08/21 05:19 Home Meds: Home Meds Lisinopril 40 mg PO DAILY 11/02/13 [History] Nitroglycerin [Nitrostat] 0.4 mg SL ASDIRECTED 11/02/13 [History] amLODIPine [Norvasc] 10 mg PO BEDTIME 11/02/13 [History] Finasteride [Proscar] 5 mg PO DAILY 08/19/17 [History] Furosemide [Lasix] 40 mg PO DAILY 08/19/17 [History] Metoprolol Succinate [Toprol XL] 25 mg PO BEDTIME 08/19/17 [History] Potassium Chloride 40 meq PO DAILY 08/20/17 [History] Triamterene/Hydrochlorothiazid [Triamterene-HCTZ 37.5-25 MG] 1 cap PO BEDTIME 08/20/17 [History] Cholecalciferol (Vitamin D3) [Vitamin D3] 1,000 unit PO DAILY 03/05/19 [History] Insulin Detemir [Levemir Flextouch] 40 unit SQ BEDTIME 03/05/19 [History] Insulin Lispro [Humalog] 15 unit SUBCUT TIDMEALS 03/05/19 [History] Doxazosin Mesylate [Cardura] 8 mg PO DAILY 06/04/19 [History] Levothyroxine [Synthroid] 88 mcg PO ACBREAKFAST 06/04/19 [History] atorvaSTATin Calcium [Lipitor] 40 mg PO BEDTIME 06/04/19 [History] Cyanocobalamin (Vitamin B-12) [B-12] 1,000 mcg PO DAILY 01/25/21 [History] Warfarin [Coumadin] 5 mg PO ASDIRECTED 01/25/21 [History] Warfarin [Coumadin] 7.5 mg PO ASDIRECTED 01/25/21 [History] Aspirin 81 mg PO DAILY 05/08/21 [History] fentaNYL [Duragesic] 1 patch TD Q72H 05/08/21 [History] fentaNYL [Duragesic] 25 mcg TD Q72H #1 patch.td72 05/08/21 [Rx] Past Medical History HEENT History: Reports: Cataract, Hard of Hearing, Impaired Vision, Macular Degeneration, Other (See Below) Other HEENT History: reading glasses Cardiovascular History: Reports: CAD, High Cholesterol, Hypertension, ID, Pacemaker, SOB on Exertion, Stents, Other (See Below) Other Cardiovascular History: stent right leg- peripheral artery disease Respiratory History: Reports: SOB Gastrointestinal History: Reports: Colon Polyp Genitourinary History: Reports: Retention, Urinary Musculoskeletal History: Reports: Arthritis, Back Pain, Chronic Other Musculoskeletal History: left knee pain. bilat hip pain Neurological History: Reports: None Psychiatric History: Reports: None Endocrine/Metabolic History: Reports: Diabetes, Type II, Hypothyroidism, Obesity/BMI 30+, Vitamin D Deficiency Other Endocrine/Metabolic History: borderline Hematologic History: Reports: None Immunologic History: Reports: None Oncologic (Cancer) History: Reports: Other (See Below) Other Oncologic History: skin-melanoma Dermatologic History: Reports: Benign Melanoma, Melanoma - Infectious Disease History Infectious Disease History: Reports: Chicken Pox, Measles, Mumps - Past Surgical History Head Surgeries/Procedures: Reports: None HEENT Surgical History: Reports: Cataract Surgery Cardiovascular Surgical History: Reports: Carotid Stents, Pacer, Other (See Below) Other Cardiovascular Surgeries/Procedures: stent right leg Respiratory Surgical History: Reports: None GI Surgical History: Reports: Appendectomy, Colonoscopy, Hernia, Abdominal, Polypectomy Male Surgical History: Reports: None, Other (See Below) Other Male Surgeries/Procedures: URINARY RETENTION Endocrine Surgical History: Reports: None Musculoskeletal Surgical History: Reports: None, Knee Replacement Other Musculoskeletal Surgeries/Procedures:: 08/20/17 partial left knee Oncologic Surgical History: Reports: None Dermatological Surgical History: Reports: Skin Biopsy, Other (See Below) Social & Family History - Family History Family Medical History: No Pertinent Family History - Tobacco Use Tobacco Use Status *Q: Never Tobacco User - Caffeine Use Caffeine Use: Reports: None Caffeine Use Comment: cup/day - Recreational Drug Use Recreational Drug Use: No ED ROS GENERAL - Review of Systems Review Of Systems: See Below Constitutional: Reports: No Symptoms HEENT: Reports: No Symptoms Respiratory: Reports: No Symptoms Cardiovascular: Reports: No Symptoms GI/Abdominal: Reports: Constipation (mild at times), Other (no incontinence) : Denies: Incontinence Musculoskeletal: Reports: Back Pain Skin: Reports: No Symptoms Neurological: Denies: Confusion, Numbness, Weakness ED EXAM,LOWER BACK PAIN/INJURY - Physical Exam Exam: See Below Exam Limited By: No Limitations General Appearance: Alert, WD/WN, No Apparent Distress, Obese Eye Exam: Bilateral Eye: Normal Inspection Ears: Normal External Exam, Normal Canal, Hearing Loss (mild) Nose: Normal Inspection Throat/Mouth: Normal Lips, Normal Voice, No Airway Compromise Head: Atraumatic, Normocephalic Neck: Normal Inspection Respiratory/Chest: No Respiratory Distress, No Accessory Muscle Use GI/Abdominal: Soft, Non-Tender, Other (obese) Back Exam: Normal Inspection Extremities: Normal Inspection, Normal Range of Motion, Non-Tender, No Pedal Edema Neurological: Alert, Normal Mood/Affect, CN II-XII Intact, No Motor/Sensory Deficits, Oriented x 3 Psychiatric: Normal Affect, Normal Mood Skin Exam: Warm, Dry, Intact, Normal Color, No Rash Course - Vital Signs Last Recorded V/S: Last Vital Signs Temp 36.4 C 05/08/21 05:27 Pulse 84 05/08/21 05:27 Resp 15 05/08/21 05:27 BP 155/80 H 05/08/21 05:27 Pulse Ox 93 L 05/08/21 05:27 - Orders/Labs/Meds Orders: Active Orders 24 hr Category Date Time Status fentaNYL [Duragesic] Med 05/08/21 06:15 Ordered 25 mcg TRDERM Q72H Medication Orders Fentanyl (Fentanyl 25 Mcg/Hr Transdermal Patch) 25 mcg TRDERM Q72H [facility] Meds: Medications Generic Name Dose Route Start Last Admin Trade Name Freq PRN Reason Stop Dose Admin Fentanyl 25 mcg 05/08/21 06:15 Fentanyl 25 Mcg/Hr Transdermal Patch TRDERM Q72H [facility] Discontinued Medications Generic Name Dose Route Start Last Admin Trade Name Freq PRN Reason Stop Dose Admin Ketorolac Tromethamine 30 mg 05/08/21 05:46 05/08/21 05:56 Ketorolac 30 Mg/Ml Sdv IM 05/08/21 05:47 30 mg ONETIME ONE Administration Departure - Departure Time of Disposition: 06:25 Disposition: Home, Self-Care 01 Condition: Fair Clinical Impression: Chronic low back pain Qualifiers: Back pain laterality: unspecified Sciatica presence: without sciatica Qualified Code(s): M54.5 - Low back pain; G89.29 - Other chronic pain - Discharge Information *PRESCRIPTION DRUG MONITORING PROGRAM REVIEWED*: Not Applicable *COPY OF PRESCRIPTION DRUG MONITORING REPORT IN PATIENT DELIA: Not Applicable Prescriptions: fentaNYL [Duragesic] 25 mcg TD Q72H #1 patch.td72 Instructions: Chronic Back Pain, [id number] Referrals: Job Otto [employer] [Primary Care Provider] - Additional Instructions: Hold your last 12 mcg fentanyl patch. Remove the 25 mcg patch we applied today after 72 hrs and apply a new patch. Keep your appt for Saturday with Job Otto. Drink enough fluids and eat enough high fiber foods and/or take enough meds for your bowels to prevent constipation from the fentanyl. Use caution with driving until you know how it is going to affect you. Sepsis Event Note (ED) - Evaluation Sepsis Screening Result: No Definite Risk - Focused Exam Vital Signs: Vital Signs Temp Pulse Resp BP Pulse Ox 05/08/21 05:27 36.4 C 84 15 155/80 H 93 L 05/08/21 05:16 36.4 C 84 15 155/80 H 93 L - My Orders Last 24 Hours: My Active Orders 05/08/21 06:15 fentaNYL [Duragesic] 25 mcg TRDERM Q72H - Assessment/Plan Last 24 Hours: My Active Orders 05/08/21 06:15 fentaNYL [Duragesic] 25 mcg TRDERM Q72H
== END 2021-05-08 06:38 | disposition home or self-care (01) ==
LOC: JP.ED 05:16
DX: G89.29 Other chronic pain (principal); M54.5 Low back pain; I25.10 Atherosclerotic heart disease of native coronary artery without angina pectoris; E78.00 Pure hypercholesterolemia, unspecified; I10 Essential (primary) hypertension; I25.2 Old myocardial infarction; M19.90 Unspecified osteoarthritis, unspecified site; E11.9 Type 2 diabetes mellitus without complications; E03.9 Hypothyroidism, unspecified; E66.9 Obesity, unspecified; Z68.35 Body mass index [BMI] 35.0-35.9, adult; Z79.4 Long term (current) use of insulin; Z79.82 Long term (current) use of aspirin; Z79.01 Long term (current) use of anticoagulants; Z79.899 Other long term (current) drug therapy
CPT/HCPCS: 96372; 99283; A9270; J1885